=== PATIENT | male | born 1965 | race American Indian/Alaskan Native ===

== ENCOUNTER 2022-02-03 19:45 | Inpatient (IN) | payer OTHER ==
[2022-02-03] MEDS ORDERED: SODIUM CHLORIDE 0.9% 1000 ML 1,000 ML IV ONE (20:32)
[2022-02-03 21:10] LABS: Calcium 8.8 mg/dL (8.4-10.2)
[2022-02-03 21:19] LABS: Basophils # (Auto) 0.1 K/mm3 (0.0-0.1); Basophils % (Auto) 0.4 % (0.0-1.8); Eosinophils % (Auto) 0.1 % (0.0-4.3); Lymphocytes # (Auto) 1.9 K/mm3 (1.2-5.4); Lymphocytes % (Auto) 11.6 % (13.4-35.0); Mean Corpuscular HGB Conc 35 % (32-34); Mean Corpuscular Volume 100 fl (84-94); Monocytes # (Auto) 1.1 K/mm3 (0.0-0.8); Monocytes % (Auto) 6.5 % (0.0-7.3); Platelet Count 351 K/mm3 (140-440); Red Blood Count 1.66 M/mm3 (3.65-5.03); Red Cell Distribution Width 12.4 % (13.2-15.2)
[2022-02-03 21:30] LABS: Hematocrit 16.6 % (35.5-45.6); Hemoglobin 5.8 gm/dl (11.8-15.2)
[2022-02-03] MEDS ORDERED: SODIUM CHLORIDE 0.9% 500 ML 500 ML IV ONE (21:39)
[2022-02-03] MEDS ORDERED: INSULIN REGULAR, HUMAN 100 UNITS/1 ML IV ONE (21:40)
--- NOTE | 2022-02-03 22:00 | Emergency Department Report ---
- General Chief complaint: Hyperglycemia Stated complaint: MALAISE, HYPERGLYCEMIA Time Seen by Provider: 02/03/22 20:15 Source: patient, EMS Mode of arrival: Stretcher Limitations: No Limitations - History of Present Illness Initial comments: Patient is a 56-year-old male brought in by EMS with complaint of malaise. He reportedly was diagnosed with prostate cancer last year and canceled his follow- up appointment in July of this year. He has not followed up since. He is ac companied by his sister who reports intermittent episodes of lightheadedness/syncope over the past week. Patient also reports that his blood sugar has been high. He has history of diabetes type 2 and is on oral medications. - Related Data Allergies Allergy/AdvReac Type Severity Reaction Status Date / Time No Known Allergies Allergy Unverified 02/03/22 20:07 ED Review of Systems ROS: Stated complaint: MALAISE, HYPERGLYCEMIA Other details as noted in HPI Constitutional: malaise, weakness Respiratory: denies: cough, shortness of breath, wheezing Cardiovascular: denies: chest pain, palpitations Gastrointestinal: melena. denies: abdominal pain, nausea, vomiting Genitourinary: denies: urgency, dysuria Musculoskeletal: denies: back pain, joint swelling, arthralgia Skin: denies: rash, lesions Neurological: denies: headache, weakness, paresthesias Psychiatric: denies: anxiety, depression ED Past Medical Hx - Past Medical History Previous Medical History?: Yes Hx Diabetes: Yes Additional medical history: PROSTATE CANCER - Surgical History Past Surgical History?: No - Social History Smoking Status: Never Smoker ED Physical Exam - General Limitations: No Limitations General appearance: in no apparent distress, lethargic - Head Head exam: Present: atraumatic, normocephalic - Respiratory Respiratory exam: Present: normal lung sounds bilaterally. Absent: respiratory distress - Cardiovascular Cardiovascular Exam: Present: regular rate, normal rhythm, normal heart sounds - GI/Abdominal GI/Abdominal exam: Present: soft. Absent: distended, tenderness - Rectal Rectal exam: Present: normal rectal tone, heme (+) stool, black stool. Absent: hemorrhoids, mass, tenderness - Extremities Exam Extremities exam: Present: normal inspection - Neurological Exam Neurological exam: Present: alert, oriented X3 - Psychiatric Psychiatric exam: Present: normal affect, normal mood - Skin Skin exam: Present: warm, dry, intact, pallor ED Course Vital Signs 02/03/22 02/03/22 02/03/22 20:03 20:20 20:30 Temperature 98.8 F Pulse Rate 102 H 87 Respiratory 16 16 10 L Rate Blood Pressure 96/57 Blood Pressure 118/76 [Right] O2 Sat by Pulse 98 99 100 Oximetry 02/03/22 02/03/22 02/03/22 20:33 20:35 20:46 Temperature 98.5 F Pulse Rate 96 H 96 H 96 H Respiratory 20 17 Rate Blood Pressure 98/56 101/57 Blood Pressure [Right] O2 Sat by Pulse 98 100 Oximetry 02/03/22 02/03/22 02/03/22 21:00 21:16 21:30 Temperature Pulse Rate 88 89 Respiratory 22 17 Rate Blood Pressure 104/54 96/55 113/57 Blood Pressure [Right] O2 Sat by Pulse 99 96 100 Oximetry 02/03/22 02/03/22 02/03/22 21:46 22:00 22:30 Temperature Pulse Rate 87 98 H 103 H Respiratory 24 16 Rate Blood Pressure 97/49 112/53 112/53 Blood Pressure [Right] O2 Sat by Pulse 100 100 Oximetry 02/03/22 22:46 Temperature Pulse Rate 100 H Respiratory 19 Rate Blood Pressure 79/37 Blood Pressure [Right] O2 Sat by Pulse 100 Oximetry ED Medical Decision Making - Lab Data Result diagrams: 02/03/22 20:44 02/03/22 20:24 - Medical Decision Making Hemoglobin 5.6. Digital rectal exam reveals melanic stool. Patient started on Protonix drip and 3 units of packed cells ordered. CTA abdomen pelvis shows no obvious source of bleeding. GI consulted and will follow during admission. Serum glucose 551. Serum potassium within normal limits. Patient given IV insulin along with aggressive fluid resuscitation. Will admit to hospitalist. Critical Care Time: Yes Critical care time in (mins) excluding proc time.: 60 Critical care attestation.: If time is entered above; I have spent that time in minutes in the direct care of this critically ill patient, excluding procedure time. ED Disposition Clinical Impression: Occult GI bleeding, Anemia due to gastrointestinal blood loss, Hyperglycemia due to type 2 diabetes mellitus Disposition: 09 ADMITTED INPATIENT Is pt being admited?: Yes Condition: Stable Instructions: Diabetes Mellitus Type 2 in Adults (ED)
--- NOTE | 2022-02-03 22:47 | Cat Scan Report ---
CTA ABDOMEN AND PELVIS WITH IV CONTRAST INDICATION: GI bleed 100ml of [id number] . TECHNIQUE: Axial CT images were obtained through the abdomen and pelvis after injection of IV contrast. 3 plane MIP reconstructions were produced. All CT scans at this location are performed using CT dose reductio n for ALARA by means of automated exposure control. COMPARISON: None available. FINDINGS: VASCULAR FINDINGS: AORTA: There is mild atherosclerosis without other significant abnormalities. CELIAC TRUNK: No significant abnormality. SUPERIOR MESENTERIC ARTERY: No significant abnormality. RENAL ARTERIES: Mild nonobstructive atherosclerosis is seen at the origin of the left renal artery. N o other significant abnormality. INFERIOR MESENTERIC ARTERY: No significant abnormality. RIGHT ILIAC ARTERIES: There is mild nonobstructive atherosclerosis without other significant abnormal ities. LEFT ILIAC ARTERIES: There is mild nonobstructive atherosclerosis without other significant abnormali ties. FEMORAL ARTERIES: There is mild nonobstructive atherosclerosis without other significant abnormalitie s. NONTARGET STRUCTURES: ABDOMEN: No active contrast extravasation is identified along the GI tract to suggest an acute active GI bleed. No other acute findings. PELVIS: The prostate gland is mildly enlarged. No other significant abnormality. SKELETAL: No significant abnormality. ADDITIONAL FINDINGS: None. IMPRESSION: No CT angiographic evidence of an active GI bleed. No other acute vascular findings. Signer Name: Renato Cordero MD Signed: 02/03/2022 10:43 PM Workstation Name: [id number]
[2022-02-03] MEDS ORDERED: DEXTROSE 50% IN WATER (25GM) 50 ML SYRINGE IV PRN (23:45)
[2022-02-03] MEDS ORDERED: MORPHINE 2 MG/1 ML INJ IV PRN (23:45)
[2022-02-03] MEDS ORDERED: MORPHINE 4 MG/1 ML INJ IV PRN (23:45)
[2022-02-03] MEDS ORDERED: ONDANSETRON 4 MG/2 ML INJ IV PRN (23:45)
[2022-02-03] MEDS ORDERED: ACETAMINOPHEN 325 MG TAB PO PRN (23:45)
--- NOTE | 2022-02-03 23:57 | History and Physical Report ---
History of Present Illness Date of examination: 02/03/22 Date of admission: 02/03/2022 Chief complaint: Generalized malaise History of present illness: 56-year-old male with known history of diabetes mellitus and prostate cancer diagnosed about a year ago presenting to the emergency room today complaining of generalized weakness and dizziness. Patient has refused to follow-up with us for prostate cancer since last year. He also indicates that his blood sugar has been high. He denies any fever or chills, no chest pain or shortness of breath, no headache or diaphoresis. Denies any abdominal pain, no hematuria or dysuria. He also indicates that he has been having some bloody stool. He denies any use of nonsteroidal anti-inflammatory medication. Work-up in the emergency room today reveals an elevated blood glucose in the 500s. Hemoglobin of 5.6. CT angiogram of the abdomen and pelvis was unremarkable. Patient is being prepared for blood transfusion. Chemical Laboratory Assistant on-call has also been notified and consulted by the ER physician. Past History Past Medical History: diabetes, other (Prostate ca.) Past Surgical History: No surgical history Social history: no significant social history Family history: no significant family history Medications and Allergies Allergies Allergy/AdvReac Type Severity Reaction Status Date / Time No Known Allergies Allergy Verified 02/03/22 23:26 Active Meds: Active Medications Pantoprazole Sodium 80 mg/ (Sodium Chloride) 100 mls @ 10 mls/hr IV DIRECT SHARI Review of Systems Constitutional: malaise, no fever, no chills Ears, nose, mouth and throat: no nasal congestion, no sore throat Cardiovascular: no chest pain, no palpitations Respiratory: no cough, no shortness of breath Gastrointestinal: abdominal pain, BRBPR, no nausea, no vomiting, no diarrhea Genitourinary Male: no dysuria, no hematuria, no nocturia Rectal: bleeding Musculoskeletal: no neck pain, no low back pain Integumentary: no rash, no pruritis Neurological: no headaches, no confusion Psychiatric: no anxiety, no depression Endocrine: no polyphagia, no polydipsia, no polyuria, no nocturia Exam - Constitutional Vitals: Temp Pulse Resp BP Pulse Ox 98.5 F 100 H 19 79/37 100 02/03/22 20:35 02/03/22 22:46 02/03/22 22:46 02/03/22 22:46 02/03/22 22:46 General appearance: Present: no acute distress, well-nourished, other (Moderate pallor, appears lethargic) - EENT Eyes: Present: PERRL, EOM intact. Absent: scleral icterus ENT: hearing intact, clear oral mucosa, dentition normal - Neck Neck: Present: supple, normal ROM - Respiratory Respiratory effort: normal Respiratory: bilateral: CTA - Cardiovascular Rhythm: regular Heart Sounds: Present: S1 & S2. Absent: gallop, systolic murmur, diastolic murmur, rub, click - Extremities Extremities: no ischemia, pulses intact, pulses symmetrical, No edema, normal temperature, normal color, Full ROM Peripheral Pulses: within normal limits - Abdominal General gastrointestinal: Present: soft, non-tender, non-distended, normal bowel sounds. Absent: mass - Integumentary Integumentary: Present: clear, warm, dry, normal turgor. Absent: rash - Musculoskeletal Musculoskeletal: strength equal bilaterally - Psychiatric Psychiatric: appropriate mood/affect, intact judgment & insight, memory intact, cooperative - Neurologic Neurologic: CNII-XII intact, no focal deficits, moves all extremities Results - Labs CBC & Chem 7: 02/04/22 05:24 02/04/22 04:00 Labs: Abnormal lab results 02/03/22 02/03/22 02/03/22 Range/Units 20:19 20:24 20:44 WBC 16.2 H (4.5-11.0) K/mm3 RBC 1.66 L (3.65-5.03) M/mm3 Hgb 5.8 L* (11.8-15.2) gm/dl Hct 16.6 L* (35.5-45.6) % MCV 100 H (84-94) fl MCH 35 H (28-32) pg MCHC 35 H (32-34) % RDW 12.4 L (13.2-15.2) % Lymph % (Auto) 11.6 L (13.4-35.0) % [place] # (Auto) 1.1 H (0.0-0.8) K/mm3 Seg Neutrophils % 81.4 H (40.0-70.0) % Seg Neutrophils # 13.2 H (1.8-7.7) K/mm3 Sodium 132 L (137-145) mmol/L Chloride 93.9 L (98-107) mmol/L BUN 56 H (9-20) mg/dL Creatinine 1.6 H (0.8-1.3) mg/dL Glucose 551 H* (75-100) mg/dL POC Glucose 505 H (70-105) mg/dL Crossmatch 02/03/22 02/03/22 Range/Units 21:53 22:45 WBC (4.5-11.0) K/mm3 RBC (3.65-5.03) M/mm3 Hgb (11.8-15.2) gm/dl Hct (35.5-45.6) % MCV (84-94) fl MCH (28-32) pg MCHC (32-34) % RDW (13.2-15.2) % Lymph % (Auto) (13.4-35.0) % [place] # (Auto) (0.0-0.8) K/mm3 Seg Neutrophils % (40.0-70.0) % Seg Neutrophils # (1.8-7.7) K/mm3 Sodium (137-145) mmol/L Chloride (98-107) mmol/L BUN (9-20) mg/dL Creatinine (0.8-1.3) mg/dL Glucose (75-100) mg/dL POC Glucose 368 H (70-105) mg/dL Crossmatch See Detail Assessment and Plan Assessment: 1. GI bleed 2. Hyperglycemia 3. Anemia-possibly secondary to GI bleed 4. History of prostate cancer Plan: 1. Patient admitted into the intensive care unit 2. We will monitor for hemoglobin and hematocrit. 3. Consult placed to special crimes investigator for evaluation 4. Patient will be made n.p.o. at this time. 5. Patient placed on sliding scale insulin. Monitor Accu-Cheks closely. DVT prophylaxis: Sequential compression device CODE STATUS: Full code
[2022-02-04] MEDS: SODIUM CHLORIDE 0.9% 1000 ML 1,000 ML IV SCH ×2 (00:16→12:07)
[2022-02-04] MEDS: PANTOPRAZOLE 80 MG in SODIUM CHLORIDE 0.9% 100 ML IV SCH ×2 (00:17→17:13)
[2022-02-04 05:37] LABS: Hematocrit 23.5 % (35.5-45.6); Hemoglobin 8.3 gm/dl (11.8-15.2); Mean Corpuscular HGB Conc 35 % (32-34); Mean Corpuscular Volume 93 fl (84-94); Platelet Count 264 K/mm3 (140-440); Red Blood Count 2.52 M/mm3 (3.65-5.03); Red Cell Distribution Width 14.9 % (13.2-15.2)
[2022-02-04 05:57] LABS: BUN/Creatinine Ratio 36; Blood Urea Nitrogen 47 mg/dL (9-20); Hemolysis Index 7
[2022-02-04] MEDS: INSULIN LISPRO 100 UNIT/ML SUB-Q SCH ×4 (06:42→23:54)
--- NOTE | 2022-02-04 09:00 | XRay Report ---
CHEST 1 VIEW 02/04/2022 8:38 AM INDICATION / CLINICAL INFORMATION: Dyspnea. COMPARISON: None available. FINDINGS: SUPPORT DEVICES: None. HEART / MEDIASTINUM: No significant abnormality. LUNGS / PLEURA: No significant pulmonary or pleural abnormality. No pneumothorax. ADDITIONAL FINDINGS: No significant additional findings. IMPRESSION: 1. No acute findings. Signer Name: Madhav Mayo Jr, MD Signed: 02/04/2022 8:56 AM Workstation Name: [id number]
--- NOTE | 2022-02-04 10:19 | Progress Note ---
<RAMOS VILLAGOMEZ - Last Filed: 02/04/22 18:01> Assessment and Plan Assessment and plan: This is a 56-year-old male with known past medical history of type 2 diabetes mellitus and prostate CA admitted for acute blood loss anemia secondary to GI bleed Hospital Course to Date: 02/04: s/p 3units of PRBCs, H&H stable, no s/s of any active bleeding since admit. GI consulted, plan for possible EGD/colonoscopy tomorrow. Clear liquid diet today, NPO after midnight tonight. Continue protonix gtt and trend H&H Q8hrs. Remains hyperglycemic SSI adjusted and Lantus added Qhs. Assessment and Plan #Acute Blood Loss Anemia 2/ #GI Bleed - Presented with generalized weakness and dizziness and Hgb of 5.6 - Stool occult blood positive - Per patient black stools noted at home but none reported since admit - S/p 3 units of PRBCs - H&H stable, no s/s of any active bleeding - GI Consulted, appreciate recommendations - Plan for possible EGD/colonoscopy tomorrow. - Clear liquid diet today, NPO after midnight tonight - Continue Protonix gtt - Continue to trend H&H #Hypotension-resolved #H/o Hypertension - Most likely secondary to above - BP above post blood products - Hold antihypertensive therapy for now, until after scoping - Continue blood pressure monitor per protocol - Maintain MAP above 65 and SBP less than 160 #Type 2 Diabetes Mellitus with Hyperglycemia - Hgb A1c- 5.8, patient was on Metformin at home - SSI adjusted and Lantus added Qhs - Continue BG check ACHS - While critically ill target blood glucose of 140-180 #H/o Prostate Cancer - Per patient was diagnosed with prostate CA over a year ago, however he had not been following up with his doctor - Per patient, he has an appointment with his Urologist, Dr. Garcia for this upcoming Wednesday 02/07 to further discuss plan of care - Follow up with Urology and PCP outpatient #GI/DVT Prophylaxis - PPI- Protonix gtt - SCDs to bilateral lower extremities while in bed #Advance Care Planning - Disease education data, care plan, diagnoses, and prognosis were discussed w ith patient at the bedside. Patient is a FULL code. Patient acknowledged understanding and agreed with current care plan. The high probability of a clinically significant, sudden or life threatening deterioration of the [multiple] system(s) required my full and direct attention, intervention and personal management. The aggregate critical care time was [60] minutes. This time is in addition to time spent performing reported procedures but includes the following: [x] Data Review and interpretation [x] Patient assessment and monitoring of vital signs [x] Documentation [x] Medication orders and management Disposition Plan: ICU Total Time Spent with Patient (Minutes): 60 History Interval history: Patient seen and examined at the bedside. Fully AAO, on RA, denied any pain nor any discomfort at this time. On protonix gtt. Per patient, black stools noted at home but no BM since admit. S/p 3units of PRBCs, H&H stable, VSS. Hospitalist Physical - Constitutional Vitals: Temp Pulse Resp BP Pulse Ox 98 F 83 25 H 109/60 97 02/04/22 08:00 02/04/22 08:10 02/04/22 08:20 02/04/22 08:10 02/04/22 08:20 General appearance: Present: no acute distress, well-nourished, obese - EENT Eyes: Present: PERRL, EOM intact ENT: hearing intact - Neck Neck: Present: normal ROM - Respiratory Respiratory effort: normal Respiratory: bilateral: diminished - Cardiovascular Rhythm: regular Heart Sounds: Present: S1 & S2 - Extremities Extremities: no ischemia, pulses intact, pulses symmetrical Peripheral Pulses: within normal limits - Abdominal General gastrointestinal: soft, non-distended, normal bowel sounds - Integumentary Integumentary: Present: clear, warm, dry - Psychiatric Psychiatric: appropriate mood/affect, cooperative - Neurologic Neurologic: CNII-XII intact, moves all extremities - Allied Health Allied health notes reviewed: nursing, case management Results - Labs CBC & Chem 7: 02/04/22 05:24 02/04/22 04:00 Labs: Laboratory Last Values WBC 16.6 K/mm3 (4.5-11.0) H 02/04/22 05:24 RBC 2.52 M/mm3 (3.65-5.03) L 02/04/22 05:24 Hgb 8.3 gm/dl (11.8-15.2) L 02/04/22 05:24 Hct 23.5 % (35.5-45.6) L D 02/04/22 05:24 MCV 93 fl (84-94) 02/04/22 05:24 MCH 33 pg (28-32) H 02/04/22 05:24 MCHC 35 % (32-34) H 02/04/22 05:24 RDW 14.9 % (13.2-15.2) 02/04/22 05:24 Plt Count 264 K/mm3 (140-440) 02/04/22 05:24 Lymph % (Auto) 11.6 % (13.4-35.0) L 02/03/22 20:44 [place] % (Auto) 6.5 % (0.0-7.3) 02/03/22 20:44 Eos % (Auto) 0.1 % (0.0-4.3) 02/03/22 20:44 Baso % (Auto) 0.4 % (0.0-1.8) 02/03/22 20:44 Lymph # (Auto) 1.9 K/mm3 (1.2-5.4) 02/03/22 20:44 [place] # (Auto) 1.1 K/mm3 (0.0-0.8) H 02/03/22 20:44 Eos # (Auto) 0.0 K/mm3 (0.0-0.4) 02/03/22 20:44 Baso # (Auto) 0.1 K/mm3 (0.0-0.1) 02/03/22 20:44 Seg Neutrophils % 81.4 % (40.0-70.0) H 02/03/22 20:44 Seg Neutrophils # 13.2 K/mm3 (1.8-7.7) H 02/03/22 20:44 Sodium 133 mmol/L (137-145) L 02/04/22 04:00 Potassium 3.9 mmol/L (3.6-5.0) 02/04/22 04:00 Chloride 99.5 mmol/L (98-107) 02/04/22 04:00 Carbon Dioxide 24 mmol/L (22-30) 02/04/22 04:00 Anion Gap 13 mmol/L 02/04/22 04:00 BUN 47 mg/dL (9-20) H 02/04/22 04:00 Creatinine 1.3 mg/dL (0.8-1.3) 02/04/22 04:00 Estimated GFR > 60 ml/min 02/04/22 04:00 BUN/Creatinine Ratio 36 % 02/04/22 04:00 Glucose 415 mg/dL (75-100) H 02/04/22 04:00 POC Glucose 373 mg/dL (70-105) H 02/04/22 06:37 Hemoglobin A1c 5.8 % (4-6) 02/04/22 05:24 Calcium 8.0 mg/dL (8.4-10.2) L 02/04/22 04:00 Blood Type O POSITIVE 02/03/22 21:53 Antibody Screen Negative 02/03/22 21:53 Crossmatch See Detail 02/03/22 21:53 Microbiology: Microbiology 02/03/22 Unknown Stool Stool Occult Blood (KARRI) - Final [place]/IV: Voiding Method Urinal Active Medications - Current Medications Current Medications: Generic Name Dose Route Start Last Admin Trade Name Freq PRN Reason Stop Dose Admin Acetaminophen 650 mg 02/03/22 23:45 Acetaminophen 325 Mg Tab PO Q6H PRN Pain MILD(1-3)/Fever >100.5/LUIS Dextrose 50 ml 02/03/22 23:45 Dextrose 50% In Water (25gm) 50 Ml Syringe IV Q30MIN PRN Hypoglycemia Protocol Pantoprazole Sodium 80 mg/ 100 mls @ 10 mls/hr 02/03/22 23:45 02/04/22 00:17 Sodium Chloride IV 8 mg/hr DIRECT SHARI 10 mls/hr Administration 8 MG/HR Sodium Chloride 1,000 mls @ 75 mls/hr 02/03/22 23:45 02/04/22 00:16 Nacl 0.9% 1000 Ml IV 75 mls/hr DIRECT SHARI Administration Insulin Glargine 20 units 02/04/22 22:00 Insulin Glargine 100 Units/Ml SUB-Q QHS SHARI Insulin Human Lispro 0 unit 02/04/22 07:30 02/04/22 06:42 Insulin Lispro 100 Unit/Ml SUB-Q 8 unit ACHS SHARI Administration Protocol Morphine Sulfate 2 mg 02/03/22 23:45 Morphine 2 Mg/1 Ml Inj IV Q4H PRN Pain, Moderate (4-6) Ondansetron HCl 4 mg 02/03/22 23:45 Ondansetron 4 Mg/2 Ml Inj IV Q8H PRN Nausea And Vomiting Sodium Chloride 10 ml 02/04/22 10:00 Sodium Chloride 0.9% 10 Ml Flush Syringe IV BID SHARI Sodium Chloride 10 ml 02/03/22 23:45 Sodium Chloride 0.9% 10 Ml Flush Syringe IV PRN PRN LINE FLUSH <NICOLE MIRANDA Chantelle - Last Filed: 02/05/22 07:14> Assessment and Plan Assessment and plan: I saw and evaluated the patient. I agree with the findings and the plan of care as documented in the Nurse Practitioner's~note, with the following corrections and additions. Hospitalist Physical - Constitutional Vitals: Temp Pulse Resp BP Pulse Ox 98.7 F 69 20 101/59 97 02/04/22 20:00 02/05/22 07:10 02/05/22 07:10 02/05/22 07:10 02/05/22 07:10 Results - Labs CBC & Chem 7: 02/05/22 04:28 02/05/22 04:28 Labs: Laboratory Last Values WBC 11.3 K/mm3 (4.5-11.0) H 02/05/22 04:28 RBC 2.27 M/mm3 (3.65-5.03) L 02/05/22 04:28 Hgb 7.4 gm/dl (11.8-15.2) L 02/05/22 04:28 Hct 21.3 % (35.5-45.6) L 02/05/22 04:28 MCV 94 fl (84-94) 02/05/22 04:28 MCH 33 pg (28-32) H 02/05/22 04:28 MCHC 35 % (32-34) H 02/05/22 04:28 RDW 15.5 % (13.2-15.2) H 02/05/22 04:28 Plt Count 256 K/mm3 (140-440) 02/05/22 04:28 Lymph % (Auto) 15.5 % (13.4-35.0) 02/05/22 04:28 [place] % (Auto) 6.9 % (0.0-7.3) 02/05/22 04:28 Eos % (Auto) 1.2 % (0.0-4.3) 02/05/22 04:28 Baso % (Auto) 0.5 % (0.0-1.8) 02/05/22 04:28 Lymph # (Auto) 1.8 K/mm3 (1.2-5.4) 02/05/22 04:28 [place] # (Auto) 0.8 K/mm3 (0.0-0.8) 02/05/22 04:28 Eos # (Auto) 0.1 K/mm3 (0.0-0.4) 02/05/22 04:28 Baso # (Auto) 0.1 K/mm3 (0.0-0.1) 02/05/22 04:28 Seg Neutrophils % 75.9 % (40.0-70.0) H 02/05/22 04:28 Seg Neutrophils # 8.6 K/mm3 (1.8-7.7) H 02/05/22 04:28 Sodium 139 mmol/L (137-145) 02/05/22 04:28 Potassium 3.2 mmol/L (3.6-5.0) L 02/05/22 04:28 Chloride 105.8 mmol/L (98-107) 02/05/22 04:28 Carbon Dioxide 24 mmol/L (22-30) 02/05/22 04:28 Anion Gap 12 mmol/L 02/05/22 04:28 BUN 23 mg/dL (9-20) H 02/05/22 04:28 Creatinine 1.0 mg/dL (0.8-1.3) 02/05/22 04:28 Estimated GFR > 60 ml/min 02/05/22 04:28 BUN/Creatinine Ratio 23 % 02/05/22 04:28 Glucose 171 mg/dL (75-100) H 02/05/22 04:28 POC Glucose 274 mg/dL (70-105) H 02/04/22 23:50 Hemoglobin A1c 5.8 % (4-6) 02/04/22 05:24 Calcium 7.4 mg/dL (8.4-10.2) L 02/05/22 04:28 Total Bilirubin 0.40 mg/dL (0.1-1.2) 02/05/22 04:28 AST 11 units/L (5-40) 02/05/22 04:28 ALT 8 units/L (7-56) 02/05/22 04:28 Alkaline Phosphatase 31 units/L (35-129) L 02/05/22 04:28 Total Protein 4.6 g/dL (6.3-8.2) L 02/05/22 04:28 Albumin 2.8 g/dL (3.9-5) L 02/05/22 04:28 Albumin/Globulin Ratio 1.6 % 02/05/22 04:28 Urine Color Yellow (Yellow) 02/04/22 17:47 Urine Turbidity Clear (Clear) 02/04/22 17:47 Urine pH 6.5 (5.0-7.0) 02/04/22 17:47 Ur Specific [place] 1.005 (1.003-1.030) 02/04/22 17:47 Urine Protein <15 mg/dl mg/dL (Negative) 02/04/22 17:47 Urine Glucose (UA) 2000 mg/dL (Negative) 02/04/22 17:47 Urine Ketones Negative mg/dL (Negative) 02/04/22 17:47 Urine Blood Negative (Negative) 02/04/22 17:47 Urine Nitrite Negative (Negative) 02/04/22 17:47 Urine Bilirubin Negative (Negative) 02/04/22 17:47 Urine Urobilinogen < 2.0 mg/dL (<2.0) 02/04/22 17:47 Ur Leukocyte Esterase Negative (Negative) 02/04/22 17:47 Urine WBC (Auto) 1.0 /HPF (0.0-6.0) 02/04/22 17:47 Urine RBC (Auto) < 1.0 /HPF (0.0-6.0) 02/04/22 17:47 Urine Mucus Few /HPF 02/04/22 17:47 Blood Type O POSITIVE 02/03/22 21:53 Antibody Screen Negative 02/03/22 21:53 Crossmatch See Detail 02/03/22 21:53 [place]/IV: Voiding Method Urinal Active Medications - Current Medications Current Medications: Generic Name Dose Route Start Last Admin Trade Name Freq PRN Reason Stop Dose Admin Acetaminophen 650 mg 02/03/22 23:45 Acetaminophen 325 Mg Tab PO Q6H PRN Pain MILD(1-3)/Fever >100.5/LUIS Dextrose 50 ml 02/03/22 23:45 Dextrose 50% In Water (25gm) 50 Ml Syringe IV Q30MIN PRN Hypoglycemia Protocol Pantoprazole Sodium 80 mg/ 100 mls @ 10 mls/hr 02/03/22 23:45 02/05/22 03:15 Sodium Chloride IV 8 mg/hr DIRECT SHARI 10 mls/hr Administration 8 MG/HR Sodium Chloride 1,000 mls @ 75 mls/hr 02/03/22 23:45 02/05/22 01:30 Nacl 0.9% 1000 Ml IV 75 mls/hr DIRECT SHAIR Administration Insulin Glargine 20 units 02/04/22 22:00 02/04/22 23:54 Insulin Glargine 100 Units/Ml SUB-Q 20 units QHS SHARI Administration Insulin Human Lispro 0 unit 02/04/22 07:30 02/04/22 23:54 Insulin Lispro 100 Unit/Ml SUB-Q 6 unit ACHS SHARI Administration Protocol Morphine Sulfate 2 mg 02/03/22 23:45 Morphine 2 Mg/1 Ml Inj IV Q4H PRN Pain, Moderate (4-6) Ondansetron HCl 4 mg 02/03/22 23:45 Ondansetron 4 Mg/2 Ml Inj IV Q8H PRN Nausea And Vomiting Polyethylene Glycol/Electrolytes 4,000 ml 02/04/22 17:00 Polyethylene Glycol/Elect Soln 4000 Ml PO 02/05/22 14:59 ONCE SHARI Sodium Chloride 10 ml 02/04/22 10:00 02/04/22 23:55 Sodium Chloride 0.9% 10 Ml Flush Syringe IV 10 ml BID SHARI Administration Sodium Chloride 10 ml 02/03/22 23:45 Sodium Chloride 0.9% 10 Ml Flush Syringe IV PRN PRN LINE FLUSH
--- NOTE | 2022-02-04 11:47 | Consultation ---
History of Present Illness Consult date: 02/04/22 Requesting physician: GABRIELLA BHARDWAJ Reason for consult: other (Anemia, hyperglycemia) History of present illness: 56-year-old male with known history of diabetes mellitus and prostate cancer diagnosed about a year ago presenting to the emergency room today complaining of generalized weakness and dizziness. Patient has refused to follow-up with us for prostate cancer since last year. He also indicates that his blood sugar has been high. He denies any fever or chills, no chest pain or shortness of breath, no headache or diaphoresis. Denies any abdominal pain, no hematuria or dysuria. He also indicates that he has been having some bloody stool and tarry black stools. He denies any use of nonsteroidal anti-inflammatory medication. Work-up in the emergency room today reveals an elevated blood glucose in the 500s. Hemoglobin of 5.6. CT angiogram of the abdomen and pelvis was unremarkable. Patient is awaiting supportive blood transfusion. Admitted to the ICU for closer monitoring, glycemic control and Upper GI endoscopy. A critical care consult has been placed. Patient seen and examined. Review of Systems Constitutional: malaise, no fever, no chills Ears, nose, mouth and throat: no nasal congestion, no sore throat Cardiovascular: no chest pain, no palpitations Respiratory: no cough, no shortness of breath Gastrointestinal: abdominal pain, BRBPR, no nausea, no vomiting, no diarrhea Genitourinary Male: no dysuria, no hematuria, no nocturia Rectal: bleeding Musculoskeletal: no neck pain, no low back pain Integumentary: no rash, no pruritis Neurological: no headaches, no confusion Psychiatric: no anxiety, no depression Endocrine: no polyphagia, no polydipsia, no polyuria, no nocturia Past History Past Medical History: diabetes, other (Prostate ca.) Past Surgical History: No surgical history Social history: no significant social history Family history: no significant family history Medications and Allergies Allergies Allergy/AdvReac Type Severity Reaction Status Date / Time No Known Allergies Allergy Verified 02/03/22 23:26 Home Medications Medication Instructions Recorded Confirmed Last Taken Type Amlodipine Besylate/Valsartan 1 tab PO DAILY 02/05/22 02/05/22 2 Days Ago History [Amlodipine-Valsartan 10-160 mg] ~02/03/22 Metformin HCl [metFORMIN] 1,000 mg PO BID 02/05/22 02/05/22 2 Days Ago History ~02/03/22 hydroCHLOROthiazide [HCTZ] 25 mg PO QDAY 02/05/22 02/05/22 2 Days Ago History ~02/03/22 Active Meds: Active Medications Acetaminophen (Acetaminophen 325 Mg Tab) 650 mg PO Q6H PRN PRN Reason: Pain MILD(1-3)/Fever >100.5/LUIS Dextrose (Dextrose 50% In Water (25gm) 50 Ml Syringe) 50 ml IV Q30MIN PRN; Protocol PRN Reason: Hypoglycemia Pantoprazole Sodium 80 mg/ (Sodium Chloride) 100 mls @ 10 mls/hr IV DIRECT SHARI Last Admin: 02/04/22 00:17 Dose: 8 mg/hr, 10 mls/hr Sodium Chloride (Nacl 0.9% 1000 Ml) 1,000 mls @ 75 mls/hr IV DIRECT SHARI Last Admin: 02/04/22 00:16 Dose: 75 mls/hr Insulin Glargine (Insulin Glargine 100 Units/Ml) 20 units SUB-Q QHS SHARI Insulin Human Lispro (Insulin Lispro 100 Unit/Ml) 0 unit SUB-Q ACHS SHARI; Protocol Last Admin: 02/04/22 06:42 Dose: 8 unit Morphine Sulfate (Morphine 2 Mg/1 Ml Inj) 2 mg IV Q4H PRN PRN Reason: Pain, Moderate (4-6) Ondansetron HCl (Ondansetron 4 Mg/2 Ml Inj) 4 mg IV Q8H PRN PRN Reason: Nausea And Vomiting Sodium Chloride (Sodium Chloride 0.9% 10 Ml Flush Syringe) 10 ml IV BID SHARI Sodium Chloride (Sodium Chloride 0.9% 10 Ml Flush Syringe) 10 ml IV PRN PRN PRN Reason: LINE FLUSH Physical Examination Vital signs: Vital Signs Temp Pulse Resp BP Pulse Ox 98.8 F 102 H 16 118/76 98 02/03/22 20:03 02/03/22 20:03 02/03/22 20:03 02/03/22 20:03 02/03/22 20:03 General appearance: no acute distress, alert Eyes: non-icteric ENT: oropharynx moist Neck: supple, no lymphadenopathy, no JVD Effort: normal Ascultation: Bilateral: clear, diminished breath sounds Cardiovascular: regular rate and rhythm, other (S1,S2) Gastrointestinal: normoactive bowel sounds, soft, non-tender Integumentary: normal Extremities: no cyanosis, no edema, pulses normal normal mental status, non-focal exam, pupils equal and round, CN II-XII normal, motor strength normal and other (Flat affect) Results - Laboratory Findings CBC and BMP: 02/06/22 04:00 02/06/22 04:00 Abnormal lab findings: Abnormal Labs 02/03/22 02/03/22 02/03/22 20:19 20:24 20:44 WBC 16.2 H RBC 1.66 L Hgb 5.8 L* Hct 16.6 L* MCV 100 H MCH 35 H MCHC 35 H RDW 12.4 L Lymph % (Auto) 11.6 L [place] # (Auto) 1.1 H Seg Neutrophils % 81.4 H Seg Neutrophils # 13.2 H Sodium 132 L Chloride 93.9 L BUN 56 H Creatinine 1.6 H Glucose 551 H* POC Glucose 505 H Calcium Crossmatch 02/03/22 02/03/22 02/04/22 21:53 22:45 04:00 WBC RBC Hgb Hct MCV MCH MCHC RDW Lymph % (Auto) [place] # (Auto) Seg Neutrophils % Seg Neutrophils # Sodium 133 L Chloride BUN 47 H Creatinine Glucose 415 H POC Glucose 368 H Calcium 8.0 L Crossmatch See Detail 02/04/22 02/04/22 02/04/22 05:24 06:37 11:39 WBC 16.6 H RBC 2.52 L Hgb 8.3 L Hct 23.5 L D MCV MCH 33 H MCHC 35 H RDW Lymph % (Auto) [place] # (Auto) Seg Neutrophils % Seg Neutrophils # Sodium Chloride BUN Creatinine Glucose POC Glucose 373 H 338 H Calcium Crossmatch - Diagnostic Findings Chest x-ray: image reviewed (No acute infiltrates) Assessment and Plan Acute Blood Loss Anemia 2/2 GI Bleed Hypotension H/o Hypertension Type 2 Diabetes Mellitus with Hyperglycemia H/o Prostate Cancer DVT Prophylaxis -Transfuse PRBCS, keep HgB>7g/dL -Plan for EGD and colonoscopy per GI tomorrow -Continue with therapeutic pantoprazole -Accuchecks with glycemic control. Stop Metformin and use sliding scale insulin for now -Avoid hypoglycemia -SCDs while in bed -Monitor hemodynamics closely -Hold home anti-hypertensives until his blood pressure recovers -Per patient, he has an appointment with his Urologist, Dr. Garcia for this upcoming Wednesday 02/07 to further discuss plan of care for the prostate cancer - Disease education data, care plan, diagnoses, and prognosis were discussed with patient at the bedside. Patient is a FULL code. Patient acknowledged understanding and agreed with current care plan. The high probability of a clinically significant, sudden or life threatening deterioration of the GI system(s) required my full and direct attention, intervention and personal management. The aggregate critical care time was [32] minutes. This time is in addition to time spent performing reported procedures but includes the following: [x] Data Review and interpretation [x] Patient assessment and monitoring of vital signs [x] Documentation [x] Medication orders and management
[2022-02-04] MEDS ORDERED: INSULIN REGULAR, HUMAN 100 UNITS/1 ML SUB-Q SCH (12:00)
--- NOTE | 2022-02-04 14:48 | Gastroenterology Consultation ---
History of Present Illness - Reason for Consult Consult date: 02/04/22 GI bleed Requesting physician: GABRIELLA BHARDWAJ - History of Present Illness Patient seen this AM around 8AM Pleasant 56 yo hx prostate CA, presenting with weakness/fatigue found to have severe anemia. Reports dark stool, but denies many loose melanotic stools routinely, denies prior endoscopic eval Patient has refused to follow-up with us for prostate cancer since last year. He also indicates that his blood sugar has been high. He denies any fever or chills, no chest pain or shortness of breath, no headache or diaphoresis. Denies any abdominal pain, no hematuria or dysuria. home meds reviewed/reconciled/updated Past History Past Medical History: diabetes, other (Prostate ca.) Past Surgical History: No surgical history Social history: no significant social history Family history: no significant family history Medications and Allergies Allergies Allergy/AdvReac Type Severity Reaction Status Date / Time No Known Allergies Allergy Verified 02/03/22 23:26 Active Meds: Active Medications Acetaminophen (Acetaminophen 325 Mg Tab) 650 mg PO Q6H PRN PRN Reason: Pain MILD(1-3)/Fever >100.5/LUIS Dextrose (Dextrose 50% In Water (25gm) 50 Ml Syringe) 50 ml IV Q30MIN PRN; Protocol PRN Reason: Hypoglycemia Pantoprazole Sodium 80 mg/ (Sodium Chloride) 100 mls @ 10 mls/hr IV DIRECT SHARI Last Admin: 02/04/22 00:17 Dose: 8 mg/hr, 10 mls/hr Sodium Chloride (Nacl 0.9% 1000 Ml) 1,000 mls @ 75 mls/hr IV DIRECT SHARI Last Admin: 02/04/22 12:07 Dose: 75 mls/hr Insulin Glargine (Insulin Glargine 100 Units/Ml) 20 units SUB-Q QHS SHARI Insulin Human Lispro (Insulin Lispro 100 Unit/Ml) 0 unit SUB-Q ACHS SHARI; Protocol Last Admin: 02/04/22 12:08 Dose: 8 unit Insulin Human Regular (Insulin Regular, Human 100 Units/1 Ml) 5 units SUB-Q ONCE@1200 SHARI Stop: 02/04/22 16:00 Last Admin: 02/04/22 12:07 Dose: 5 units Morphine Sulfate (Morphine 2 Mg/1 Ml Inj) 2 mg IV Q4H PRN PRN Reason: Pain, Moderate (4-6) Ondansetron HCl (Ondansetron 4 Mg/2 Ml Inj) 4 mg IV Q8H PRN PRN Reason: Nausea And Vomiting Sodium Chloride (Sodium Chloride 0.9% 10 Ml Flush Syringe) 10 ml IV BID SHARI Last Admin: 02/04/22 12:05 Dose: Not Given Sodium Chloride (Sodium Chloride 0.9% 10 Ml Flush Syringe) 10 ml IV PRN PRN PRN Reason: LINE FLUSH Review of Systems - Review of Systems All systems: negative (10 systems reviewed and neg except as mentioned in the HPI) Exam - Constitutional Vital Signs: Temp Pulse Resp BP Pulse Ox 98 F 84 22 125/79 100 02/04/22 08:00 02/04/22 13:40 02/04/22 13:40 02/04/22 13:40 02/04/22 13:40 General appearance: no acute distress - EENT Eyes: EOM intact ENT: hearing intact - Neck Neck: supple - Respiratory Respiratory effort: normal - Cardiovascular Rhythm: regular - Gastrointestinal General gastrointestinal: Present: soft, non-tender - Integumentary Integumentary: Present: warm - Musculoskeletal Musculoskeletal: normal - Neurologic Neurological: alert and oriented x3 - Psychiatric Psychiatric: appropriate mood/affect - Labs CBC & Chem 7: 02/04/22 23:18 02/04/22 04:00 Lab Results: Laboratory Results - last 24 hr 02/03/22 02/03/22 02/03/22 20:19 20:24 20:44 WBC 16.2 H RBC 1.66 L Hgb 5.8 L* Hct 16.6 L* MCV 100 H MCH 35 H MCHC 35 H RDW 12.4 L Plt Count 351 Lymph % (Auto) 11.6 L [place] % (Auto) 6.5 Eos % (Auto) 0.1 Baso % (Auto) 0.4 Lymph # (Auto) 1.9 [place] # (Auto) 1.1 H Eos # (Auto) 0.0 Baso # (Auto) 0.1 Seg Neutrophils % 81.4 H Seg Neutrophils # 13.2 H Sodium 132 L Potassium 4.0 Chloride 93.9 L Carbon Dioxide 25 Anion Gap 17 BUN 56 H Creatinine 1.6 H Estimated GFR 45 BUN/Creatinine Ratio 35 Glucose 551 H* POC Glucose 505 H Hemoglobin A1c Calcium 8.8 Blood Type Antibody Screen Crossmatch 02/03/22 02/03/22 02/04/22 21:53 22:45 04:00 WBC RBC Hgb Hct MCV MCH MCHC RDW Plt Count Lymph % (Auto) [place] % (Auto) Eos % (Auto) Baso % (Auto) Lymph # (Auto) [place] # (Auto) Eos # (Auto) Baso # (Auto) Seg Neutrophils % Seg Neutrophils # Sodium 133 L Potassium 3.9 Chloride 99.5 Carbon Dioxide 24 Anion Gap 13 BUN 47 H Creatinine 1.3 Estimated GFR > 60 BUN/Creatinine Ratio 36 Glucose 415 H POC Glucose 368 H Hemoglobin A1c Calcium 8.0 L Blood Type O POSITIVE Antibody Screen Negative Crossmatch See Detail 02/04/22 02/04/22 02/04/22 05:24 05:24 06:37 WBC 16.6 H RBC 2.52 L Hgb 8.3 L Hct 23.5 L D MCV 93 MCH 33 H MCHC 35 H RDW 14.9 Plt Count 264 Lymph % (Auto) [place] % (Auto) Eos % (Auto) Baso % (Auto) Lymph # (Auto) [place] # (Auto) Eos # (Auto) Baso # (Auto) Seg Neutrophils % Seg Neutrophils # Sodium Potassium Chloride Carbon Dioxide Anion Gap BUN Creatinine Estimated GFR BUN/Creatinine Ratio Glucose POC Glucose 373 H Hemoglobin A1c 5.8 Calcium Blood Type Antibody Screen Crossmatch 02/04/22 11:39 WBC RBC Hgb Hct MCV MCH MCHC RDW Plt Count Lymph % (Auto) [place] % (Auto) Eos % (Auto) Baso % (Auto) Lymph # (Auto) [place] # (Auto) Eos # (Auto) Baso # (Auto) Seg Neutrophils % Seg Neutrophils # Sodium Potassium Chloride Carbon Dioxide Anion Gap BUN Creatinine Estimated GFR BUN/Creatinine Ratio Glucose POC Glucose 338 H Hemoglobin A1c Calcium Blood Type Antibody Screen Crossmatch Assessment and Plan Plan for EGD/colon - had been trying for thursday but unable to due to staffing conflicts Clears Wed, Golytely Thu, NPO past [place] Thu Differential diagnosis for the severe anemia includes polyps, AVM, PUD, malignancy, etc - Patient Problems (1) Anemia due to gastrointestinal blood loss Current Visit: Yes Status: Acute (2) Occult GI bleeding Current Visit: Yes Status: Acute
[2022-02-04] MEDS ORDERED: POLYETHYLENE GLYCOL/ELECT SOLN 4000 ML PO SCH ×2 (15:00→17:00)
[2022-02-04 15:20] LABS: Hematocrit 25.4 % (35.5-45.6); Hemoglobin 8.5 gm/dl (11.8-15.2)
[2022-02-04 20:31] LABS: Mucus,Urine FEW /HPF
[2022-02-04 20:34] LABS: Color,Urine Yellow (Yellow); RBC,Urine < 1.0 /HPF (0.0-6.0)
[2022-02-04 20:35] LABS: Bilirubin,Urine Negative (Negative); Blood,Urine Negative (Negative); PH,Urine 6.5 (5.0-7.0); Protein,Urine <15 mg/dL mg/dL (Negative); Urobilinogen,Urine < 2.0 mg/dL (<2.0)
[2022-02-04 23:35] LABS: Hematocrit 23.3 % (35.5-45.6); Hemoglobin 8.1 gm/dl (11.8-15.2)
[2022-02-04] MEDS: INSULIN GLARGINE 100 UNITS/ML SUB-Q SCH (23:54)
[2022-02-05] MEDS: SODIUM CHLORIDE 0.9% 1000 ML 1,000 ML IV SCH ×2 (01:30→21:43)
[2022-02-05] MEDS: PANTOPRAZOLE 80 MG in SODIUM CHLORIDE 0.9% 100 ML IV SCH ×2 (03:15→13:31)
[2022-02-05 04:45] LABS: Basophils # (Auto) 0.1 K/mm3 (0.0-0.1); Basophils % (Auto) 0.5 % (0.0-1.8); Eosinophils # (Auto) 0.1 K/mm3 (0.0-0.4); Eosinophils % (Auto) 1.2 % (0.0-4.3); Hematocrit 21.3 % (35.5-45.6); Hemoglobin 7.4 gm/dl (11.8-15.2); Lymphocytes # (Auto) 1.8 K/mm3 (1.2-5.4); Lymphocytes % (Auto) 15.5 % (13.4-35.0); Mean Corpuscular HGB Conc 35 % (32-34); Mean Corpuscular Volume 94 fl (84-94); Monocytes # (Auto) 0.8 K/mm3 (0.0-0.8); Monocytes % (Auto) 6.9 % (0.0-7.3); Platelet Count 256 K/mm3 (140-440); Red Blood Count 2.27 M/mm3 (3.65-5.03); Red Cell Distribution Width 15.5 % (13.2-15.2)
[2022-02-05 05:05] LABS: Alanine Aminotransferase 8 units/L (7-56); Albumin 2.8 g/dL (3.9-5); BUN/Creatinine Ratio 23; Blood Urea Nitrogen 23 mg/dL (9-20); Calcium 7.4 mg/dL (8.4-10.2); Hemolysis Index 6
[2022-02-05] MEDS: INSULIN LISPRO 100 UNIT/ML SUB-Q SCH ×4 (08:46→21:36)
[2022-02-05] MEDS ORDERED: POTASSIUM CHLORIDE ER 20 MEQ TAB PO SCH (09:00)
--- NOTE | 2022-02-05 09:53 | Progress Note ---
Assessment and Plan Acute Blood Loss Anemia 2/2 GI Bleed Hypotension-resolved H/o Hypertension Type 2 Diabetes Mellitus with Hyperglycemia H/o Prostate Cancer DVT Prophylaxis -s/p 3 units of PRBCS, keep HgB>7g/dL -Monitor and replete electrolytes as clinically indicated -Plan for EGD and colonoscopy per GI tomorrow- unable to get it done today -Continue with therapeutic pantoprazole -Accuchecks with glycemic control.Continue sliding scale insulin for now -Avoid hypoglycemia -SCDs while in bed -Continue to monitor hemodynamics closely -Continue to home anti-hypertensives until his blood pressure recovers -Can transfer to telemetry while he waits for GI endoscopies Subjective Date of service: 02/05/22 Interval history: This is a 56-year-old male with known past medical history of type 2 diabetes mellitus and prostate CA admitted for acute blood loss anemia secondary to GI bleed Seen and examined. Vitals, labs, medications, chart reviewed. Discussed in interdisciplinary rounds. Hemoglobin trending down, suboptimal glycemic control. He denies any chest pain, no shortness of breath, no fevers, no chills. No black stools, no bleeding per rectum Objective Vital Signs - 12hr 02/04/22 02/04/22 02/04/22 22:00 22:10 22:20 Temperature Pulse Rate 61 76 79 Pulse Rate [ From Monitor] Respiratory 23 22 22 Rate Blood Pressure 114/61 114/61 114/61 O2 Sat by Pulse 100 97 100 Oximetry 02/04/22 02/04/22 02/04/22 22:30 22:40 22:50 Temperature Pulse Rate 63 67 60 Pulse Rate [ From Monitor] Respiratory 20 21 20 Rate Blood Pressure 114/61 114/61 114/61 O2 Sat by Pulse 97 96 99 Oximetry 02/04/22 02/04/22 02/04/22 23:00 23:04 23:10 Temperature Pulse Rate 63 70 84 Pulse Rate [ From Monitor] Respiratory 22 21 19 Rate Blood Pressure 112/58 112/58 112/58 O2 Sat by Pulse 96 97 97 Oximetry 02/04/22 02/04/22 02/04/22 23:14 23:20 23:24 Temperature Pulse Rate 63 71 64 Pulse Rate [ From Monitor] Respiratory 22 27 H 20 Rate Blood Pressure 112/58 112/58 112/58 O2 Sat by Pulse 98 96 97 Oximetry 0802/04/22 02/04/22 23:30 23:36 23:40 Temperature Pulse Rate 66 69 70 Pulse Rate [ From Monitor] Respiratory 22 22 21 Rate Blood Pressure 112/58 112/58 112/58 O2 Sat by Pulse 97 97 97 Oximetry 02/04/22 02/04/22 02/05/22 23:44 23:50 00:00 Temperature 98.1 F Pulse Rate 71 75 64 Pulse Rate [ From Monitor] Respiratory 19 15 21 Rate Blood Pressure 112/58 112/58 118/57 O2 Sat by Pulse 97 96 97 Oximetry 02/05/22 02/05/22 02/05/22 00:10 00:20 00:30 Temperature Pulse Rate 67 65 70 Pulse Rate [ From Monitor] Respiratory 22 23 24 Rate Blood Pressure 112/58 112/58 112/58 O2 Sat by Pulse 97 97 99 Oximetry 02/05/22 02/05/22 02/05/22 00:40 00:50 01:00 Temperature Pulse Rate 68 72 65 Pulse Rate [ From Monitor] Respiratory 23 22 23 Rate Blood Pressure 118/57 118/57 123/68 O2 Sat by Pulse 98 97 97 Oximetry 02/05/22 02/05/22 02/05/22 01:10 01:20 01:30 Temperature Pulse Rate 76 70 78 Pulse Rate [ From Monitor] Respiratory 23 23 27 H Rate Blood Pressure 123/68 123/68 123/68 O2 Sat by Pulse 99 95 95 Oximetry 02/05/22 02/05/22 02/05/22 01:40 01:50 02:00 Temperature Pulse Rate 66 65 63 Pulse Rate [ From Monitor] Respiratory 20 22 22 Rate Blood Pressure 123/68 123/68 99/61 O2 Sat by Pulse 96 96 95 Oximetry 02/05/22 02/05/22 02/05/22 02:10 02:20 02:30 Temperature Pulse Rate 66 70 75 Pulse Rate [ From Monitor] Respiratory 21 20 21 Rate Blood Pressure 99/61 99/61 99/61 O2 Sat by Pulse 97 95 94 Oximetry 02/05/22 02/05/22 02/05/22 02:40 02:50 03:00 Temperature Pulse Rate 68 61 61 Pulse Rate [ From Monitor] Respiratory 21 21 23 Rate Blood Pressure 99/61 99/61 98/53 O2 Sat by Pulse 95 95 95 Oximetry 02/05/22 02/05/22 02/05/22 03:10 03:20 03:30 Temperature Pulse Rate 62 69 69 Pulse Rate [ From Monitor] Respiratory 21 26 H 23 Rate Blood Pressure 98/53 98/53 98/53 O2 Sat by Pulse 95 94 94 Oximetry 02/05/22 02/05/22 02/05/22 03:40 03:50 04:00 Temperature 98.0 F Pulse Rate 68 69 66 Pulse Rate [ From Monitor] Respiratory 29 H 21 22 Rate Blood Pressure 98/53 98/53 117/67 O2 Sat by Pulse 95 97 94 Oximetry 02/05/22 02/05/22 02/05/22 04:10 04:20 04:30 Temperature Pulse Rate 60 64 76 Pulse Rate [ From Monitor] Respiratory 21 20 24 Rate Blood Pressure 117/67 117/67 117/67 O2 Sat by Pulse 98 95 97 Oximetry 02/05/22 02/05/22 02/05/22 04:40 04:50 05:00 Temperature Pulse Rate 63 68 68 Pulse Rate [ From Monitor] Respiratory 22 22 22 Rate Blood Pressure 117/67 117/67 117/67 O2 Sat by Pulse 98 97 97 Oximetry 02/05/22 02/05/22 02/05/22 05:10 05:20 05:30 Temperature Pulse Rate 64 65 68 Pulse Rate [ From Monitor] Respiratory 22 22 24 Rate Blood Pressure 113/66 113/66 113/66 O2 Sat by Pulse 98 97 94 Oximetry 02/05/22 02/05/22 02/05/22 05:40 05:50 06:00 Temperature Pulse Rate 72 67 68 Pulse Rate [ From Monitor] Respiratory 24 23 24 Rate Blood Pressure 113/66 113/66 113/66 O2 Sat by Pulse 97 98 99 Oximetry 02/05/22 02/05/22 02/05/22 06:10 06:20 06:30 Temperature Pulse Rate 68 69 81 Pulse Rate [ From Monitor] Respiratory 23 24 23 Rate Blood Pressure 100/54 100/54 100/54 O2 Sat by Pulse 100 99 99 Oximetry 02/05/22 02/05/22 02/05/22 06:40 06:50 07:00 Temperature Pulse Rate 70 63 61 Pulse Rate [ From Monitor] Respiratory 22 17 23 Rate Blood Pressure 100/54 100/54 101/59 O2 Sat by Pulse 100 99 98 Oximetry 02/05/22 02/05/22 02/05/22 07:10 07:30 08:00 Temperature 98.2 F Pulse Rate 69 79 71 Pulse Rate [ 71 From Monitor] Respiratory 20 21 16 Rate Blood Pressure 101/59 101/59 111/65 O2 Sat by Pulse 97 96 97 Oximetry 02/05/22 02/05/22 08:30 09:00 Temperature Pulse Rate 89 73 Pulse Rate [ From Monitor] Respiratory 19 21 Rate Blood Pressure 111/65 114/67 O2 Sat by Pulse 98 99 Oximetry Constitutional: no acute distress, alert Eyes: non-icteric ENT: oropharynx moist Neck: supple, no lymphadenopathy Effort: normal Ascultation: Bilateral: clear Cardiovascular: regular rate and rhythm, other (S1,S2) Gastrointestinal: normoactive bowel sounds, soft, non-tender, non-distended Integumentary: normal Extremities: no cyanosis, no edema, pink and warm Neurologic: normal mental status, non-focal exam, pupils equal and round, CN II- XII normal, motor strength normal and CBC and BMP: 02/06/22 04:00 02/06/22 04:00 Abnormal lab findings: Abnormal Labs 02/03/22 02/03/22 02/03/22 20:19 20:24 20:44 WBC 16.2 H RBC 1.66 L Hgb 5.8 L* Hct 16.6 L* MCV 100 H MCH 35 H MCHC 35 H RDW 12.4 L Lymph % (Auto) 11.6 L [place] # (Auto) 1.1 H Seg Neutrophils % 81.4 H Seg Neutrophils # 13.2 H Sodium 132 L Potassium Chloride 93.9 L BUN 56 H Creatinine 1.6 H Glucose 551 H* POC Glucose 505 H Calcium Alkaline Phosphatase Total Protein Albumin Crossmatch 02/03/22 02/03/22 02/04/22 21:53 22:45 04:00 WBC RBC Hgb Hct MCV MCH MCHC RDW Lymph % (Auto) [place] # (Auto) Seg Neutrophils % Seg Neutrophils # Sodium 133 L Potassium Chloride BUN 47 H Creatinine Glucose 415 H POC Glucose 368 H Calcium 8.0 L Alkaline Phosphatase Total Protein Albumin Crossmatch See Detail 02/04/22 02/04/22 02/04/22 05:24 06:37 11:39 WBC 16.6 H RBC 2.52 L Hgb 8.3 L Hct 23.5 L D MCV MCH 33 H MCHC 35 H RDW Lymph % (Auto) [place] # (Auto) Seg Neutrophils % Seg Neutrophils # Sodium Potassium Chloride BUN Creatinine Glucose POC Glucose 373 H 338 H Calcium Alkaline Phosphatase Total Protein Albumin Crossmatch 02/04/22 02/04/22 02/04/22 14:00 16:32 23:18 WBC RBC Hgb 8.5 L 8.1 L Hct 25.4 L 23.3 L MCV MCH MCHC RDW Lymph % (Auto) [place] # (Auto) Seg Neutrophils % Seg Neutrophils # Sodium Potassium Chloride BUN Creatinine Glucose POC Glucose 189 H Calcium Alkaline Phosphatase Total Protein Albumin Crossmatch 02/04/22 02/05/22 02/05/22 23:50 04:28 04:28 WBC 11.3 H RBC 2.27 L Hgb 7.4 L Hct 21.3 L MCV MCH 33 H MCHC 35 H RDW 15.5 H Lymph % (Auto) [place] # (Auto) Seg Neutrophils % 75.9 H Seg Neutrophils # 8.6 H Sodium Potassium 3.2 L Chloride BUN 23 H Creatinine Glucose 171 H POC Glucose 274 H Calcium 7.4 L Alkaline Phosphatase 31 L Total Protein 4.6 L Albumin 2.8 L Crossmatch 02/05/22 08:15 WBC RBC Hgb Hct MCV MCH MCHC RDW Lymph % (Auto) [place] # (Auto) Seg Neutrophils % Seg Neutrophils # Sodium Potassium Chloride BUN Creatinine Glucose POC Glucose 187 H Calcium Alkaline Phosphatase Total Protein Albumin Crossmatch Allied health notes reviewed: nursing
--- NOTE | 2022-02-05 10:58 | Gastroenterology Progress Note ---
Assessment and Plan Plan for EGD/colon - had been trying for today but unable to due to staffing conflicts Clears Wed, Gol[place] Thu night, NPO past [place] Thu night Differential diagnosis for the severe anemia includes polyps, AVM, PUD, malignancy, etc - Patient Problems (1) Anemia due to gastrointestinal blood loss Current Visit: Yes Status: Acute (2) Occult GI bleeding Current Visit: Yes Status: Acute Subjective Date of service: 02/05/22 Principal diagnosis: Anemia due to GI bleed Interval history: Patient reports still no bleeding overnight Repeat hemoglobin down somewhat compared to yesterday Patient denies any current GI symptoms Objective - Constitutional Vitals: Temp Pulse Resp BP Pulse Ox 98.2 F 68 23 97/61 97 02/05/22 08:00 02/05/22 10:00 02/05/22 10:00 02/05/22 10:00 02/05/22 09:30 General appearance: no acute distress - EENT Eyes: EOM intact - Respiratory Respiratory effort: normal - Cardiovascular Rhythm: regular - Gastrointestinal General gastrointestinal: Present: soft, tender - Neurologic Neurological: alert and oriented x3 - Labs CBC & Chem 7: 02/05/22 04:28 02/05/22 04:28 Labs: Laboratory Results - last 24 hr 02/04/22 02/04/22 02/04/22 11:39 14:00 16:32 WBC RBC Hgb 8.5 L Hct 25.4 L MCV MCH MCHC RDW Plt Count Lymph % (Auto) [place] % (Auto) Eos % (Auto) Baso % (Auto) Lymph # (Auto) [place] # (Auto) Eos # (Auto) Baso # (Auto) Seg Neutrophils % Seg Neutrophils # Sodium Potassium Chloride Carbon Dioxide Anion Gap BUN Creatinine Estimated GFR BUN/Creatinine Ratio Glucose POC Glucose 338 H 189 H Calcium Total Bilirubin AST ALT Alkaline Phosphatase Total Protein Albumin Albumin/Globulin Ratio Urine Color Urine Turbidity Urine pH Ur Specific [place] Urine Protein Urine Glucose (UA) Urine Ketones Urine Blood Urine Nitrite Urine Bilirubin Urine Urobilinogen Ur Leukocyte Esterase Urine WBC (Auto) Urine RBC (Auto) Urine Mucus 02/04/22 02/04/22 02/04/22 17:47 23:18 23:50 WBC RBC Hgb 8.1 L Hct 23.3 L MCV MCH MCHC RDW Plt Count Lymph % (Auto) [place] % (Auto) Eos % (Auto) Baso % (Auto) Lymph # (Auto) [place] # (Auto) Eos # (Auto) Baso # (Auto) Seg Neutrophils % Seg Neutrophils # Sodium Potassium Chloride Carbon Dioxide Anion Gap BUN Creatinine Estimated GFR BUN/Creatinine Ratio Glucose POC Glucose 274 H Calcium Total Bilirubin AST ALT Alkaline Phosphatase Total Protein Albumin Albumin/Globulin Ratio Urine Color Yellow Urine Turbidity Clear Urine pH 6.5 Ur Specific [place] 1.005 Urine Protein <15 mg/dl Urine Glucose (UA) 2000 Urine Ketones Negative Urine Blood Negative Urine Nitrite Negative Urine Bilirubin Negative Urine Urobilinogen < 2.0 Ur Leukocyte Esterase Negative Urine WBC (Auto) 1.0 Urine RBC (Auto) < 1.0 Urine Mucus Few 02/05/22 02/05/22 02/05/22 04:28 04:28 08:15 WBC 11.3 H RBC 2.27 L Hgb 7.4 L Hct 21.3 L MCV 94 MCH 33 H MCHC 35 H RDW 15.5 H Plt Count 256 Lymph % (Auto) 15.5 [place] % (Auto) 6.9 Eos % (Auto) 1.2 Baso % (Auto) 0.5 Lymph # (Auto) 1.8 [place] # (Auto) 0.8 Eos # (Auto) 0.1 Baso # (Auto) 0.1 Seg Neutrophils % 75.9 H Seg Neutrophils # 8.6 H Sodium 139 Potassium 3.2 L Chloride 105.8 Carbon Dioxide 24 Anion Gap 12 BUN 23 H Creatinine 1.0 Estimated GFR > 60 BUN/Creatinine Ratio 23 Glucose 171 H POC Glucose 187 H Calcium 7.4 L Total Bilirubin 0.40 AST 11 ALT 8 Alkaline Phosphatase 31 L Total Protein 4.6 L Albumin 2.8 L Albumin/Globulin Ratio 1.6 Urine Color Urine Turbidity Urine pH Ur Specific [place] Urine Protein Urine Glucose (UA) Urine Ketones Urine Blood Urine Nitrite Urine Bilirubin Urine Urobilinogen Ur Leukocyte Esterase Urine WBC (Auto) Urine RBC (Auto) Urine Mucus
--- NOTE | 2022-02-05 11:28 | Progress Note ---
<RAMOS VILLAGOMEZ - Last Filed: 02/05/22 14:41> Assessment and Plan Assessment and plan: This is a 56-year-old male with known past medical history of type 2 diabetes mellitus and prostate CA admitted for acute blood loss anemia secondary to GI bleed Hospital Course to Date: 02/04: s/p 3units of PRBCs, H&H stable, no s/s of any active bleeding since admit. GI consulted, plan for possible EGD/colonoscopy tomorrow. Clear liquid diet today, NPO after midnight tonight. Continue protonix gtt and trend H&H Q8hrs. Remains hyperglycemic SSI adjusted and Lantus added Qhs. 02/05: H&H trending down, no s/s of any active bleeding reported, VSS. Plan for EGD/colonoscopy tomorrow per GI. Continue clear liquid diet and protonix gtt. Continue to trend H&H transfuse for Hgb less than 7. BG improved, continue SSI and qHs Lantus. Patient is stable for transfer to the floor Assessment and Plan #Acute Blood Loss Anemia 2/2 #GI Bleed - Presented with generalized weakness and dizziness and Hgb of 5.6 - Stool occult blood positive - Per patient black stools noted at home but none reported since admit - S/p 3 units of PRBCs - H&H stable, however trending down - no s/s of any active bleeding - GI Consulted, appreciate recommendations - Plan for possible EGD/colonoscopy tomorrow. - Clear liquid diet today, NPO after midnight tonight - Continue Protonix gtt - Continue to trend H&H #Hypotension-resolved #H/o Hypertension - Most likely secondary to above - BP improved post blood products - Hold antihypertensive therapy for now, until after scoping - Continue blood pressure monitor per protocol - Maintain MAP above 65 and SBP less than 160 #Type 2 Diabetes Mellitus with Hyperglycemia - Hgb A1c- 5.8, patient was on Metformin at home - Continue BG check ACHS and Lantus Qhs - While critically ill target blood glucose of 140-180 #Hypokalemia - K repleted - Monitor and replace electrolytes as needed - Strict intake and output #H/o Prostate Cancer - Per patient was diagnosed with prostate CA over a year ago, however he had not been following up with his doctor - Per patient, he has an appointment with his Urologist, Dr. Garcia for this upcoming Wednesday 02/07 to further discuss plan of care - Follow up with Urology and PCP outpatient #GI/DVT Prophylaxis - PPI- Protonix gtt - SCDs to bilateral lower extremities while in bed #Advance Care Planning - Disease education data, care plan, diagnoses, and prognosis were discussed with patient at the bedside. Patient is a FULL code. Patient acknowledged understanding and agreed with current care plan. The high probability of a clinically significant, sudden or life threatening deterioration of the [multiple] system(s) required my full and direct attention, intervention and personal management. The aggregate critical care time was [60] minutes. This time is in addition to time spent performing reported procedures but includes the following: [x] Data Review and interpretation [x] Patient assessment and monitoring of vital signs [x] Documentation [x] Medication orders and management Disposition Plan: ICU Total Time Spent with Patient (Minutes): 60 History Interval history: Patient seen and examined at the bedside. Fully AAO, on RA, denied any pain nor any discomfort at this time. Remains on protonix gtt. No black tarry stools reported form overnight, H&H stable, VSS. Hospitalist Physical - Constitutional Vitals: Temp Pulse Resp BP Pulse Ox 98.2 F 76 15 106/69 100 02/05/22 08:00 02/05/22 11:00 02/05/22 11:00 02/05/22 11:00 02/05/22 10:30 General appearance: Present: no acute distress, well-nourished, obese - EENT Eyes: Present: PERRL, EOM intact ENT: hearing intact, clear oral mucosa - Neck Neck: Present: normal ROM - Respiratory Respiratory effort: normal Respiratory: bilateral: CTA - Cardiovascular Rhythm: regular Heart Sounds: Present: S1 & S2 - Extremities Extremities: no ischemia, pulses intact, pulses symmetrical Peripheral Pulses: within normal limits - Abdominal General gastrointestinal: soft, non-distended, normal bowel sounds - Integumentary Integumentary: Present: clear, warm, dry - Psychiatric Psychiatric: appropriate mood/affect, cooperative - Neurologic Neurologic: CNII-XII intact, moves all extremities - Allied Health Allied health notes reviewed: nursing, case management Results - Labs CBC & Chem 7: 02/05/22 12:22 02/05/22 04:28 Labs: Laboratory Last Values WBC 11.3 K/mm3 (4.5-11.0) H 02/05/22 04:28 RBC 2.27 M/mm3 (3.65-5.03) L 02/05/22 04:28 Hgb 7.4 gm/dl (11.8-15.2) L 02/05/22 04:28 Hct 21.3 % (35.5-45.6) L 02/05/22 04:28 MCV 94 fl (84-94) 02/05/22 04:28 MCH 33 pg (28-32) H 02/05/22 04:28 MCHC 35 % (32-34) H 02/05/22 04:28 RDW 15.5 % (13.2-15.2) H 02/05/22 04:28 Plt Count 256 K/mm3 (140-440) 02/05/22 04:28 Lymph % (Auto) 15.5 % (13.4-35.0) 02/05/22 04:28 Stark % (Auto) 6.9 % (0.0-7.3) 02/05/22 04:28 Eos % (Auto) 1.2 % (0.0-4.3) 02/05/22 04:28 Baso % (Auto) 0.5 % (0.0-1.8) 02/05/22 04:28 Lymph # (Auto) 1.8 K/mm3 (1.2-5.4) 02/05/22 04:28 Stark # (Auto) 0.8 K/mm3 (0.0-0.8) 02/05/22 04:28 Eos # (Auto) 0.1 K/mm3 (0.0-0.4) 02/05/22 04:28 Baso # (Auto) 0.1 K/mm3 (0.0-0.1) 02/05/22 04:28 Seg Neutrophils % 75.9 % (40.0-70.0) H 02/05/22 04:28 Seg Neutrophils # 8.6 K/mm3 (1.8-7.7) H 02/05/22 04:28 Sodium 139 mmol/L (137-145) 02/05/22 04:28 Potassium 3.2 mmol/L (3.6-5.0) L 02/05/22 04:28 Chloride 105.8 mmol/L (98-107) 02/05/22 04:28 Carbon Dioxide 24 mmol/L (22-30) 02/05/22 04:28 Anion Gap 12 mmol/L 02/05/22 04:28 BUN 23 mg/dL (9-20) H 02/05/22 04:28 Creatinine 1.0 mg/dL (0.8-1.3) 02/05/22 04:28 Estimated GFR > 60 ml/min 02/05/22 04:28 BUN/Creatinine Ratio 23 % 02/05/22 04:28 Glucose 171 mg/dL (75-100) H 02/05/22 04:28 POC Glucose 154 mg/dL (70-105) H 02/05/22 11:14 Hemoglobin A1c 5.8 % (4-6) 02/04/22 05:24 Calcium 7.4 mg/dL (8.4-10.2) L 02/05/22 04:28 Total Bilirubin 0.40 mg/dL (0.1-1.2) 02/05/22 04:28 AST 11 units/L (5-40) 02/05/22 04:28 ALT 8 units/L (7-56) 02/05/22 04:28 Alkaline Phosphatase 31 units/L (35-129) L 02/05/22 04:28 Total Protein 4.6 g/dL (6.3-8.2) L 02/05/22 04:28 Albumin 2.8 g/dL (3.9-5) L 02/05/22 04:28 Albumin/Globulin Ratio 1.6 % 02/05/22 04:28 Urine Color Yellow (Yellow) 02/04/22 17:47 Urine Turbidity Clear (Clear) 02/04/22 17:47 Urine pH 6.5 (5.0-7.0) 02/04/22 17:47 Ur Specific Baxter 1.005 (1.003-1.030) 02/04/22 17:47 Urine Protein <15 mg/dl mg/dL (Negative) 02/04/22 17:47 Urine Glucose (UA) 2000 mg/dL (Negative) 02/04/22 17:47 Urine Ketones Negative mg/dL (Negative) 02/04/22 17:47 Urine Blood Negative (Negative) 02/04/22 17:47 Urine Nitrite Negative (Negative) 02/04/22 17:47 Urine Bilirubin Negative (Negative) 02/04/22 17:47 Urine Urobilinogen < 2.0 mg/dL (<2.0) 02/04/22 17:47 Ur Leukocyte Esterase Negative (Negative) 02/04/22 17:47 Urine WBC (Auto) 1.0 /HPF (0.0-6.0) 02/04/22 17:47 Urine RBC (Auto) < 1.0 /HPF (0.0-6.0) 02/04/22 17:47 Urine Mucus Few /HPF 02/04/22 17:47 Blood Type O POSITIVE 02/03/22 21:53 Antibody Screen Negative 02/03/22 21:53 Crossmatch See Detail 02/03/22 21:53 Greenfield/IV: Voiding Method Urinal Active Medications - Current Medications Current Medications: Generic Name Dose Route Start Last Admin Trade Name Freq PRN Reason Stop Dose Admin Acetaminophen 650 mg 02/03/22 23:45 Acetaminophen 325 Mg Tab PO Q6H PRN Pain MILD(1-3)/Fever >100.5/LUIS Dextrose 50 ml 02/03/22 23:45 Dextrose 50% In Water (25gm) 50 Ml Syringe IV Q30MIN PRN Hypoglycemia Protocol Pantoprazole Sodium 80 mg/ 100 mls @ 10 mls/hr 02/03/22 23:45 02/05/22 03:15 Sodium Chloride IV 8 mg/hr DIRECT SHARI 10 mls/hr Administration 8 MG/HR Sodium Chloride 1,000 mls @ 75 mls/hr 02/03/22 23:45 02/05/22 01:30 Nacl 0.9% 1000 Ml IV 75 mls/hr DIRECT SHARI Administration Insulin Glargine 20 units 02/04/22 22:00 02/04/22 23:54 Insulin Glargine 100 Units/Ml SUB-Q 20 units QHS SHARI Administration Insulin Human Lispro 0 unit 02/04/22 07:30 02/05/22 08:46 Insulin Lispro 100 Unit/Ml SUB-Q 3 unit ACHS SHARI Administration Protocol Morphine Sulfate 2 mg 02/03/22 23:45 Morphine 2 Mg/1 Ml Inj IV Q4H PRN Pain, Moderate (4-6) Ondansetron HCl 4 mg 02/03/22 23:45 Ondansetron 4 Mg/2 Ml Inj IV Q8H PRN Nausea And Vomiting Polyethylene Glycol/Electrolytes 4,000 ml 02/05/22 15:00 Polyethylene Glycol/Elect Soln 4000 Ml PO 02/06/22 14:59 ONCE@1500 SHARI Potassium Chloride 40 meq 02/05/22 09:00 02/05/22 09:18 Potassium Chloride Er 20 Meq Tab PO 02/05/22 13:00 40 meq ONCE@0900 SHARI Administration Sodium Chloride 10 ml 02/04/22 10:00 02/05/22 09:19 Sodium Chloride 0.9% 10 Ml Flush Syringe IV 10 ml BID SHARI Administration Sodium Chloride 10 ml 02/03/22 23:45 Sodium Chloride 0.9% 10 Ml Flush Syringe IV PRN PRN LINE FLUSH <NICOLE MIRANDA - Last Filed: 02/06/22 07:33> Assessment and Plan Assessment and plan: I saw and evaluated the patient. I agree with the findings and the plan of care as documented in the Nurse Practitioner's~note, with the following corrections and additions. Hospitalist Physical - Constitutional Vitals: Temp Pulse Resp BP Pulse Ox 98.1 F 75 16 119/74 97 02/06/22 03:14 02/06/22 03:14 02/06/22 03:14 02/06/22 03:14 02/06/22 03:14 Results - Labs CBC & Chem 7: 02/06/22 04:00 02/06/22 04:00 Labs: Laboratory Last Values WBC 8.6 K/mm3 (4.5-11.0) 02/06/22 04:00 RBC 2.02 M/mm3 (3.65-5.03) L 02/06/22 04:00 Hgb 7.0 gm/dl (11.8-15.2) L 02/06/22 04:00 Hct 19.1 % (35.5-45.6) L* 02/06/22 04:00 MCV 94 fl (84-94) 02/06/22 04:00 MCH 35 pg (28-32) H 02/06/22 04:00 MCHC 37 % (32-34) H 02/06/22 04:00 RDW 16.5 % (13.2-15.2) H 02/06/22 04:00 Plt Count 245 K/mm3 (140-440) 02/06/22 04:00 Lymph % (Auto) 15.5 % (13.4-35.0) 02/05/22 04:28 Stark % (Auto) 6.9 % (0.0-7.3) 02/05/22 04:28 Eos % (Auto) 1.2 % (0.0-4.3) 02/05/22 04:28 Baso % (Auto) 0.5 % (0.0-1.8) 02/05/22 04:28 Lymph # (Auto) 1.8 K/mm3 (1.2-5.4) 02/05/22 04:28 Stark # (Auto) 0.8 K/mm3 (0.0-0.8) 02/05/22 04:28 Eos # (Auto) 0.1 K/mm3 (0.0-0.4) 02/05/22 04:28 Baso # (Auto) 0.1 K/mm3 (0.0-0.1) 02/05/22 04:28 Seg Neutrophils % 75.9 % (40.0-70.0) H 02/05/22 04:28 Seg Neutrophils # 8.6 K/mm3 (1.8-7.7) H 02/05/22 04:28 PT 15.5 Sec. (12.2-14.9) H 02/06/22 04:00 INR 1.08 (0.87-1.13) 02/06/22 04:00 Sodium 141 mmol/L (137-145) 02/06/22 04:00 Potassium 3.5 mmol/L (3.6-5.0) L 02/06/22 04:00 Chloride 109.6 mmol/L (98-107) H 02/06/22 04:00 Carbon Dioxide 21 mmol/L (22-30) L 02/06/22 04:00 Anion Gap 14 mmol/L 02/06/22 04:00 BUN 14 mg/dL (9-20) 02/06/22 04:00 Creatinine 1.1 mg/dL (0.8-1.3) 02/06/22 04:00 Estimated GFR > 60 ml/min 02/06/22 04:00 BUN/Creatinine Ratio 13 % 02/06/22 04:00 Glucose 164 mg/dL (75-100) H 02/06/22 04:00 POC Glucose 139 mg/dL (70-105) H 02/05/22 21:12 Hemoglobin A1c 5.8 % (4-6) 02/04/22 05:24 Calcium 7.6 mg/dL (8.4-10.2) L 02/06/22 04:00 Phosphorus 2.60 mg/dL (2.5-4.5) 02/06/22 04:00 Magnesium 1.60 mg/dL (1.7-2.3) L 02/06/22 04:00 Total Bilirubin 0.40 mg/dL (0.1-1.2) 02/05/22 04:28 AST 11 units/L (5-40) 02/05/22 04:28 ALT 8 units/L (7-56) 02/05/22 04:28 Alkaline Phosphatase 31 units/L (35-129) L 02/05/22 04:28 Total Protein 4.6 g/dL (6.3-8.2) L 02/05/22 04:28 Albumin 2.8 g/dL (3.9-5) L 02/05/22 04:28 Albumin/Globulin Ratio 1.6 % 02/05/22 04:28 Urine Color Yellow (Yellow) 02/04/22 17:47 Urine Turbidity Clear (Clear) 02/04/22 17:47 Urine pH 6.5 (5.0-7.0) 02/04/22 17:47 Ur Specific Baxter 1.005 (1.003-1.030) 02/04/22 17:47 Urine Protein <15 mg/dl mg/dL (Negative) 02/04/22 17:47 Urine Glucose (UA) 2000 mg/dL (Negative) 02/04/22 17:47 Urine Ketones Negative mg/dL (Negative) 02/04/22 17:47 Urine Blood Negative (Negative) 02/04/22 17:47 Urine Nitrite Negative (Negative) 02/04/22 17:47 Urine Bilirubin Negative (Negative) 02/04/22 17:47 Urine Urobilinogen < 2.0 mg/dL (<2.0) 02/04/22 17:47 Ur Leukocyte Esterase Negative (Negative) 02/04/22 17:47 Urine WBC (Auto) 1.0 /HPF (0.0-6.0) 02/04/22 17:47 Urine RBC (Auto) < 1.0 /HPF (0.0-6.0) 02/04/22 17:47 Urine Mucus Few /HPF 02/04/22 17:47 Blood Type O POSITIVE 02/03/22 21:53 Antibody Screen Negative 02/03/22 21:53 Crossmatch See Detail 02/03/22 21:53 Greenfield/IV: Voiding Method Bedside Commode Active Medications - Current Medications Current Medications: Generic Name Dose Route Start Last Admin Trade Name Freq PRN Reason Stop Dose Admin Acetaminophen 650 mg 02/03/22 23:45 02/05/22 20:45 Acetaminophen 325 Mg Tab PO 650 mg Q6H PRN Administration Pain MILD(1-3)/Fever >100.5/LUIS Dextrose 50 ml 02/03/22 23:45 Dextrose 50% In Water (25gm) 50 Ml Syringe IV Q30MIN PRN Hypoglycemia Protocol Pantoprazole Sodium 80 mg/ 100 mls @ 10 mls/hr 02/03/22 23:45 02/06/22 05:09 Sodium Chloride IV 8 mg/hr DIRECT SHARI 10 mls/hr Administration 8 MG/HR Sodium Chloride 1,000 mls @ 75 mls/hr 02/03/22 23:45 02/05/22 21:43 Nacl 0.9% 1000 Ml IV 75 mls/hr DIRECT SHARI Administration Insulin Glargine 20 units 02/04/22 22:00 02/05/22 21:37 Insulin Glargine 100 Units/Ml SUB-Q Not Given QHS [facility] Insulin Human Lispro 0 unit 02/04/22 07:30 02/05/22 21:36 Insulin Lispro 100 Unit/Ml SUB-Q Not Given ACHS [facility] Protocol Morphine Sulfate 2 mg 02/03/22 23:45 Morphine 2 Mg/1 Ml Inj IV Q4H PRN Pain, Moderate (4-6) Ondansetron HCl 4 mg 02/03/22 23:45 Ondansetron 4 Mg/2 Ml Inj IV Q8H PRN Nausea And Vomiting Polyethylene Glycol/Electrolytes 4,000 ml 02/05/22 15:00 02/05/22 15:15 Polyethylene Glycol/Elect Soln 4000 Ml PO 02/06/22 14:59 4,000 ml ONCE@1500 SHARI Administration Sodium Chloride 10 ml 02/04/22 10:00 02/05/22 21:43 Sodium Chloride 0.9% 10 Ml Flush Syringe IV 10 ml BID SHARI Administration Sodium Chloride 10 ml 02/03/22 23:45 Sodium Chloride 0.9% 10 Ml Flush Syringe IV PRN PRN LINE FLUSH
[2022-02-05 12:54] LABS: Hematocrit 22.6 % (35.5-45.6); Hemoglobin 7.6 gm/dl (11.8-15.2)
[2022-02-05] MEDS ORDERED: POLYETHYLENE GLYCOL/ELECT SOLN 4000 ML PO SCH (15:00)
[2022-02-05] MEDS: INSULIN GLARGINE 100 UNITS/ML SUB-Q SCH (21:37)
[2022-02-06 00:42] LABS: Hematocrit 21.1 % (35.5-45.6); Hemoglobin 7.3 gm/dl (11.8-15.2)
[2022-02-06] MEDS: PANTOPRAZOLE 80 MG in SODIUM CHLORIDE 0.9% 100 ML IV SCH (05:09)
[2022-02-06 05:49] LABS: Mean Corpuscular HGB Conc 37 % (32-34); Mean Corpuscular Volume 94 fl (84-94); Platelet Count 245 K/mm3 (140-440); Red Blood Count 2.02 M/mm3 (3.65-5.03); Red Cell Distribution Width 16.5 % (13.2-15.2)
[2022-02-06 06:00] LABS: INR 1.08 (0.87-1.13)
[2022-02-06 06:02] LABS: Hematocrit 19.1 % (35.5-45.6)
[2022-02-06 06:12] LABS: BUN/Creatinine Ratio 13; Blood Urea Nitrogen 14 mg/dL (9-20); Calcium 7.6 mg/dL (8.4-10.2); Hemolysis Index 2
[2022-02-06] MEDS: INSULIN LISPRO 100 UNIT/ML SUB-Q SCH ×4 (08:45→22:47)
--- NOTE | 2022-02-06 08:45 | Anesthesia Consultation ---
Anesthesia Consult and Med Hx Date of service: 02/06/22 - Airway Anesthetic Teeth Evaluation: Poor (multiple missing teeth) ROM Head & Neck: Adequate Mental/Hyoid Distance: Adequate Mallampati Class: Class II Intubation Access Assessment: Probably Good - Pre-Operative Health Status ASA Pre-Surgery Classification: ASA3 Proposed Anesthetic Plan: MAC - Cardiovascular System Hx Hypertension: Yes - Gastrointestinal Hx Ulcer: Yes - Endocrine Hx Non-Insulin Dependent Diabetes: Yes - Hematic Hx Anemia: Yes - Other Systems Hx Cancer: Yes (prostate CA, recently diagnosed)
--- NOTE | 2022-02-06 08:45 | Anesthesia Day of Surgery ---
Anesthesia Day of Surgery - Day of Surgery Patient Examined: Yes Patient H&P Reviewed: Yes Patient is NPO: Yes
[2022-02-06] MEDS ORDERED: propofoL 200 MG/20 ML VIAL IV ONE ×2 (08:47→08:59)
--- NOTE | 2022-02-06 09:20 | Operative Report ---
Operative Report Operative Report: DOS: 02/06/22 SURGEON: Deo Francis MD COLONOSCOPY with snare polypectomy REPORT PREOPERATIVE AND POSTOPERATIVE DIAGNOSIS: Anemia, Melena DESCRIPTION OF PROCEDURE: The colonoscope was passed to the terminal ileum as identified by the ileal tissue. Scope was carefully withdrawn. Retroflexion was performed in the rectum. At the end of procedure, the scope was cleaned using normal technique. Vital signs monitored continuously throughout. SEDATION: Provided by Anesthesiology Services. Quality of the prep was adequate. COMPLICATIONS: None. ESTIMATED BLOOD LOSS: minimal FINDINGS: * Normal terminal ileum * Mild scattered diverticulosis throughout the colon * 5 mm sessile polyp in the sigmoid colon removed by cold snare polypectomy * Small nonbleeding internal hemorrhoids * Remainder of exam unremarkable RECOMMENDATIONS: Anemia is due to the duodenal ulcer. Follow-up pathology results Pantoprazole 40 mg twice daily Restarting patient on diet Once hemoglobin stable for 24 hours can discharge with outpatient follow-up. Transfuse for hemoglobin less than 7 Ulcer is too large for endoscopic therapy, and also had no high risk stigmata so is low risk for recurrent bleed. Therefore, GI will sign off Patient should have repeat colonoscopy in 5 years
--- NOTE | 2022-02-06 09:22 | Operative Report ---
Operative Report Operative Report: DOS: 02/06/22 SURGEON: Deo Francis MD EGD WITH BIOPSY REPORT PREOPERATIVE DIAGNOSIS and POSTOPERATIVE DIAGNOSIS: Anemia, melena ESTIMATED BLOOD LOSS: Minimal DESCRIPTION OF PROCEDURE: A high-resolution peds colonoscope was passed through the oropharynx, esophagus, stomach, and second portion of duodenum. The scope was carefully withdrawn. Retroflexion was performed in the stomach. At the end of the procedure, the scope was cleaned using normal technique. Vital signs monitored continuously throughout. SEDATION: Provided by [facility]. COMPLICATIONS: None. FINDINGS: * Normal second portion of the duodenum * Large ulcer in the duodenal bulb extending duodenal sweep. About 2 cm x 5 cm. Clean-based with no high risk stigmata. Heaped up edges. On the anterior wall. Cold forceps used to obtain multiple biopsies from the edges as well as base of the duodenal ulcer rule out dysplasia * Mild gastritis of the antrum and body of the stomach. Biopsies were taken to rule out H. Pylori infection. A total of 5 biopsies were taken, 2 from the antrum, 1 from the incisura, 2 from the body. * There was a 3 mm sessile polyp in the gastric antrum which was removed by cold forceps biopsy and placed and the same bottle as H. pylori biopsies * Z-line irregular 41 cm in incisors * Remainder of exam unremarkable RECOMMENDATIONS: Anemia is due to the duodenal ulcer. Follow-up pathology results Pantoprazole 40 mg twice daily Restarting patient on diet Once hemoglobin stable for 24 hours can discharge with outpatient follow-up. Transfuse for hemoglobin less than 7 Ulcer is too large for endoscopic therapy, and also had no high risk stigmata so is low risk for recurrent bleed. Therefore, GI will sign off Patient should have repeat colonoscopy in 5 years
[2022-02-06] MEDS: PANTOPRAZOLE 40 MG TAB PO SCH ×2 (11:35→22:48)
--- NOTE | 2022-02-06 12:27 | Progress Note ---
Assessment and Plan 56-year-old male with known history of diabetes mellitus and prostate cancer diagnosed about a year ago presenting to the emergency room complaining of generalized weakness and dizziness. Patient has refused to follow-up with us for prostate cancer since last year. He also indicates that his blood sugar has been high. He denies any fever or chills, no chest pain or shortness of breath, no headache or diaphoresis. Denies any abdominal pain, no hematuria or dysuria. He also indicates that he has been having some bloody stool. He denies any use of nonsteroidal anti-inflammatory medication. Work-up in the emergency room today reveals an elevated blood glucose in the 500s. Hemoglobin of 5.6. CT angiogram of the abdomen and pelvis was unremarkable. Patient receved blood transfusion 4 units PRBC Forepart Rounder on-call consulted. Patient has no history of smoking, alcohol or drug abuse. 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 . 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 No known drug allergies. Patient awake, weak. Resting on room air. O2 saturation 98%. No acute respiratory distress at rest. Patient afebrile. No Leukocytosis. Blood pressure 103/58 , Pulse 72 , Respirations 18. Patients to days 02/06/22 HGB 7.0, Hematocrit 19.1 after blood transfusion. Chest xray done 02/06/22 reported no acute findings. Patient is on I/V fluids and protonix.S/C Insulin. Patients sister at bed side. Explained patients respiratory status. - Patient Problems (1) Anemia due to gastrointestinal blood loss Current Visit: Yes Status: Acute Plan to address problem: Patient received blood transfusion 4 units PRBC. Patients to days 02/06/22 HGB 7.0. Gastroenterology on consult. (2) Hyperglycemia due to type 2 diabetes mellitus Current Visit: Yes Status: Acute Plan to address problem: Management as per primary care. (3) Prostate cancer Current Visit: Yes Status: Acute Plan to address problem: Patient has history of prostate cancer. Patient non compliant. Patient did not follow on prostate cancer. Recommend to consult urology and Oncology. Subjective Date of service: 02/06/22 Principal diagnosis: Anemia due to GI bleed Interval history: 56-year-old male with known history of diabetes mellitus and prostate cancer diagnosed about a year ago presenting to the emergency room complaining of generalized weakness and dizziness. Patient has refused to follow-up with us for prostate cancer since last year. He also indicates that his blood sugar has been high. He denies any fever or chills, no chest pain or shortness of breath, no headache or diaphoresis. Denies any abdominal pain, no hematuria or dysuria. He also indicates that he has been having some bloody stool. He denies any use of nonsteroidal anti-inflammatory medication. Work-up in the emergency room today reveals an elevated blood glucose in the 500s. Hemoglobin of 5.6. CT angiogram of the abdomen and pelvis was unremarkable. Patient receved blood transfusion 4 units PRBC Forepart Rounder on-call consulted. Patient has no history of smoking, alcohol or drug abuse. 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 . 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 No known drug allergies. Patient awake, weak. Resting on room air. O2 saturation 98%. No acute respiratory distress at rest. Patient afebrile. No Leukocytosis. Blood pressure 103/58 , Pulse 72 , Respirations 18. Patients to days 02/06/22 HGB 7.0, Hematocrit 19.1 after blood transfusion. Chest xray done 02/06/22 reported no acute findings. Patient is on I/V fluids and protonix.S/C Insulin. Patients sister at bed side. Explained patients respiratory status. Objective Vital Signs - 12hr 02/06/22 02/06/22 02/06/22 03:14 08:24 09:10 Temperature 98.1 F 99 F 99 F Pulse Rate 75 81 99 H Respiratory 16 22 10 L Rate Blood Pressure 119/74 111/57 89/51 O2 Sat by Pulse 97 99 98 Oximetry 02/06/22 02/06/22 02/06/22 09:15 09:20 09:25 Temperature Pulse Rate 95 H 84 81 Respiratory 21 22 22 Rate Blood Pressure 99/53 98/53 105/56 O2 Sat by Pulse 100 100 100 Oximetry 02/06/22 02/06/22 02/06/22 09:30 09:35 09:45 Temperature 98.1 F Pulse Rate 83 81 81 Respiratory 24 22 20 Rate Blood Pressure 108/61 111/57 113/71 O2 Sat by Pulse 99 99 99 Oximetry Constitutional: no acute distress, alert, other (weak) Eyes: non-icteric ENT: oropharynx moist Neck: supple, no lymphadenopathy Effort: normal Ascultation: Bilateral: clear Cardiovascular: regular rate and rhythm Gastrointestinal: normoactive bowel sounds, soft, non-tender Integumentary: normal Extremities: no cyanosis, no edema Neurologic: normal mental status, non-focal exam, pupils equal and round Psychiatric: depressed CBC and BMP: 02/06/22 04:00 02/06/22 04:00 ABG, PT/INR, D-dimer: PT/INR, D-dimer PT 15.5 Sec. (12.2-14.9) H 02/06/22 04:00 INR 1.08 (0.87-1.13) 02/06/22 04:00 Abnormal lab findings: Abnormal Labs 02/03/22 02/03/22 02/03/22 20:19 20:24 20:44 WBC 16.2 H RBC 1.66 L Hgb 5.8 L* Hct 16.6 L* MCV 100 H MCH 35 H MCHC 35 H RDW 12.4 L Lymph % (Auto) 11.6 L [place] # (Auto) 1.1 H Seg Neutrophils % 81.4 H Seg Neutrophils # 13.2 H PT Sodium 132 L Potassium Chloride 93.9 L Carbon Dioxide BUN 56 H Creatinine 1.6 H Glucose 551 H* POC Glucose 505 H Calcium Magnesium Alkaline Phosphatase Total Protein Albumin Crossmatch 02/03/22 02/03/22 02/04/22 21:53 22:45 04:00 WBC RBC Hgb Hct MCV MCH MCHC RDW Lymph % (Auto) [place] # (Auto) Seg Neutrophils % Seg Neutrophils # PT Sodium 133 L Potassium Chloride Carbon Dioxide BUN 47 H Creatinine Glucose 415 H POC Glucose 368 H Calcium 8.0 L Magnesium Alkaline Phosphatase Total Protein Albumin Crossmatch See Detail 02/04/22 02/04/22 02/04/22 05:24 06:37 11:39 WBC 16.6 H RBC 2.52 L Hgb 8.3 L Hct 23.5 L D MCV MCH 33 H MCHC 35 H RDW Lymph % (Auto) [place] # (Auto) Seg Neutrophils % Seg Neutrophils # PT Sodium Potassium Chloride Carbon Dioxide BUN Creatinine Glucose POC Glucose 373 H 338 H Calcium Magnesium Alkaline Phosphatase Total Protein Albumin Crossmatch 02/04/22 02/04/22 02/04/22 14:00 16:32 23:18 WBC RBC Hgb 8.5 L 8.1 L Hct 25.4 L 23.3 L MCV MCH MCHC RDW Lymph % (Auto) [place] # (Auto) Seg Neutrophils % Seg Neutrophils # PT Sodium Potassium Chloride Carbon Dioxide BUN Creatinine Glucose POC Glucose 189 H Calcium Magnesium Alkaline Phosphatase Total Protein Albumin Crossmatch 02/04/22 02/05/22 02/05/22 23:50 04:28 04:28 WBC 11.3 H RBC 2.27 L Hgb 7.4 L Hct 21.3 L MCV MCH 33 H MCHC 35 H RDW 15.5 H Lymph % (Auto) [place] # (Auto) Seg Neutrophils % 75.9 H Seg Neutrophils # 8.6 H PT Sodium Potassium 3.2 L Chloride Carbon Dioxide BUN 23 H Creatinine Glucose 171 H POC Glucose 274 H Calcium 7.4 L Magnesium Alkaline Phosphatase 31 L Total Protein 4.6 L Albumin 2.8 L Crossmatch 02/05/22 02/05/22 02/05/22 08:15 11:14 12:22 WBC RBC Hgb 7.6 L Hct 22.6 L MCV MCH MCHC RDW Lymph % (Auto) [place] # (Auto) Seg Neutrophils % Seg Neutrophils # PT Sodium Potassium Chloride Carbon Dioxide BUN Creatinine Glucose POC Glucose 187 H 154 H Calcium Magnesium Alkaline Phosphatase Total Protein Albumin Crossmatch 02/05/22 02/05/22 02/05/22 16:49 21:12 23:05 WBC RBC Hgb 7.3 L Hct 21.1 L MCV MCH MCHC RDW Lymph % (Auto) [place] # (Auto) Seg Neutrophils % Seg Neutrophils # PT Sodium Potassium Chloride Carbon Dioxide BUN Creatinine Glucose POC Glucose 166 H 139 H Calcium Magnesium Alkaline Phosphatase Total Protein Albumin Crossmatch 02/06/22 02/06/22 02/06/22 04:00 04:00 04:00 WBC RBC 2.02 L Hgb 7.0 L Hct 19.1 L* MCV MCH 35 H MCHC 37 H RDW 16.5 H Lymph % (Auto) [place] # (Auto) Seg Neutrophils % Seg Neutrophils # PT 15.5 H Sodium Potassium 3.5 L Chloride 109.6 H Carbon Dioxide 21 L BUN Creatinine Glucose 164 H POC Glucose Calcium 7.6 L Magnesium 1.60 L Alkaline Phosphatase Total Protein Albumin Crossmatch 02/06/22 02/06/22 02/06/22 07:55 09:19 11:57 WBC RBC Hgb Hct MCV MCH MCHC RDW Lymph % (Auto) [place] # (Auto) Seg Neutrophils % Seg Neutrophils # PT Sodium Potassium Chloride Carbon Dioxide BUN Creatinine Glucose POC Glucose 161 H 157 H 214 H Calcium Magnesium Alkaline Phosphatase Total Protein Albumin Crossmatch Chest x-ray: report reviewed, image reviewed Additional Studies: CHEST 1 VIEW 02/04/2022 8:38 AM INDICATION / CLINICAL INFORMATION: Dyspnea. COMPARISON: None available. FINDINGS: SUPPORT DEVICES: None. HEART / MEDIASTINUM: No significant abnormality. LUNGS / PLEURA: No significant pulmonary or pleural abnormality. No p neumothorax. ADDITIONAL FINDINGS: No significant additional findings. IMPRESSION: 1. No acute findings.
[2022-02-06] MEDS ORDERED: SODIUM CHLORIDE 0.9% 500 ML 500 ML IV NR (12:45)
--- NOTE | 2022-02-06 13:23 | Post Anesthesia Evaluation ---
- Post Anesthesia Evaluation Patient Participated: Yes Airway Patent: Yes Stable Respiratory Function: Yes Nausea/Vomiting: No Temp > 96.8F: Yes Pain Manageable: Yes Adequeate Hydration: Yes Anesthesia Complications: No
--- NOTE | 2022-02-06 14:21 | Progress Note ---
Assessment and Plan Assessment and plan: This is a 56-year-old male with known past medical history of type 2 diabetes mellitus and prostate CA admitted for acute blood loss anemia secondary to GI bleed Hospital Course to Date: 02/04: s/p 3units of PRBCs, H&H stable, no s/s of any active bleeding since admit. GI consulted, plan for possible EGD/colonoscopy tomorrow. Clear liquid diet today, NPO after midnight tonight. Continue protonix gtt and trend H&H Q8hrs. Remains hyperglycemic SSI adjusted and Lantus added Qhs. 02/05: H&H trending down, no s/s of any active bleeding reported, VSS. Plan for EGD/colonoscopy tomorrow per GI. Continue clear liquid diet and protonix gtt. Continue to trend H&H transfuse for Hgb less than 7. BG improved, continue SSI and qHs Lantus. Patient is stable for transfer to the floor 02/06: Patient seen and examined this morning post endoscopy no new complaints. Tolerating diet. I did discuss the findings as noted below he verbalized understanding he will follow-up with the GI doctor for pathology report. Hemoglobin is 7 today has had some gradual downward trend we will give 1 unit packed red blood cell with his agreeable to. He understands that he also was too large for endoscopic therapy but had no high risk stigmata so low risk for recurrent bleed per GI. I provided counseling on the need to ensure he has colonoscopy in 5 years he verbalized understanding his sister was present in the room. No new complaints at this time. Anticipate discharge in a.m. 50 minutes of preventive care counseling provided FINDINGS: * Normal second portion of the duodenum * Large ulcer in the duodenal bulb extending duodenal sweep. About 2 cm x 5 cm. Clean-based with no high risk stigmata. Heaped up edges. On the anterior wall. Cold forceps used to obtain multiple biopsies from the edges as well as base of the duodenal ulcer rule out dysplasia * Mild gastritis of the antrum and body of the stomach. Biopsies were taken to rule out H. Pylori infection. A total of 5 biopsies were taken, 2 from the antrum, 1 from the incisura, 2 from the body. * There was a 3 mm sessile polyp in the gastric antrum which was removed by cold forceps biopsy and placed and the same bottle as H. pylori biopsies * Z-line irregular 41 cm in incisors * Remainder of exam unremarkable RECOMMENDATIONS: Anemia is due to the duodenal ulcer. Follow-up pathology results Pantoprazole 40 mg twice daily Restarting patient on diet Once hemoglobin stable for 24 hours can discharge with outpatient follow-up. Transfuse for hemoglobin less than 7 Ulcer is too large for endoscopic therapy, and also had no high risk stigmata so is low risk for recurrent bleed. Therefore, GI will sign off Patient should have repeat colonoscopy in 5 years * Normal terminal ileum * Mild scattered diverticulosis throughout the colon * 5 mm sessile polyp in the sigmoid colon removed by cold snare polypectomy * Small nonbleeding internal hemorrhoids * Remainder of exam unremarkable RECOMMENDATIONS: Anemia is due to the duodenal ulcer. Follow-up pathology results Pantoprazole 40 mg twice daily Restarting patient on diet Once hemoglobin stable for 24 hours can discharge with outpatient follow-up. Transfuse for hemoglobin less than 7 Ulcer is too large for endoscopic therapy, and also had no high risk stigmata so is low risk for recurrent bleed. Therefore, GI will sign off Patient should have repeat colonoscopy in 5 years Assessment and Plan #Acute Blood Loss Anemia 2/2 secondary to duodenal ulcer. Sessile polyp in the sigmoid colon #GI Bleed: - Presented with generalized weakness and dizziness and Hgb of 5.6 - Stool occult blood positive - Per patient black stools noted at home but none reported since admit - S/p 3 units of PRBCs - H&H stable, however trending down - no s/s of any active bleeding - GI Consulted, appreciate recommendations - Plan for possible EGD/colonoscopy tomorrow. - Clear liquid diet today, NPO after midnight tonight - Continue Protonix gtt - Continue to trend H&H #Hypotension-resolved #H/o Hypertension - Most likely secondary to above - BP improved post blood products - Hold antihypertensive therapy for now, until after scoping - Continue blood pressure monitor per protocol - Maintain MAP above 65 and SBP less than 160 #Type 2 Diabetes Mellitus with Hyperglycemia - Hgb A1c- 5.8, patient was on Metformin at home - Continue BG check ACHS and Lantus Qhs - While critically ill target blood glucose of 140-180 #Hypokalemia - K repleted - Monitor and replace electrolytes as needed - Strict intake and output #H/o Prostate Cancer - Per patient was diagnosed with prostate CA over a year ago, however he had not been following up with his doctor - Per patient, he has an appointment with his Urologist, Dr. Garcia for this upcoming Wednesday 02/07 to further discuss plan of care - Follow up with Urology and PCP outpatient #GI/DVT Prophylaxis - PPI- Protonix gtt - SCDs to bilateral lower extremities while in bed #Advance Care Planning - Disease education data, care plan, diagnoses, and prognosis were discussed with patient at the bedside. Patient is a FULL code. Patient acknowledged understanding and agreed with current care plan. History Interval history: Patient seen and examined post endoscopy all questions answered to sister at bedside. Patient tolerating diet no new complaints. Hospitalist Physical - Physical exam Narrative exam: VITAL SIGNS: Reviewed. GENERAL: The patient appears normally developed, Vital signs as documented. HEAD: No signs of head trauma. EYES: Pupils are equal. Extraocular motions intact. EARS: Hearing grossly intact. MOUTH: Oropharynx is normal. NECK: No adenopathy, no JVD. CHEST: Chest with clear breath sounds bilaterally. No wheezes, rales, or rhonchi. CARDIAC: Regular rate and rhythm. S1 and S2, without murmurs, gallops, or rubs. VASCULAR: No Edema. Peripheral pulses normal and equal in all extremities. ABDOMEN: Soft, non tender and non distended. No rebound or guarding, and no masses palpated. Bowel Sounds normal. MUSCULOSKELETAL: Good range of motion of all major joints. Extremities without clubbing, cyanosis or edema. NEUROLOGIC EXAM: Alert and oriented x 3 No focal sensory or strength deficits. Speech normal. Follows commands. PSYCHIATRIC: Mood normal. SKIN: detail exam as documented in skin assessment - Constitutional Vitals: Temp Pulse Resp BP Pulse Ox 97.8 F 72 18 103/58 96 02/06/22 11:58 02/06/22 11:58 02/06/22 11:58 02/06/22 11:58 02/06/22 12:00 General appearance: Present: no acute distress, well-nourished, obese Results - Labs CBC & Chem 7: 02/06/22 04:00 02/06/22 04:00 Labs: Laboratory Last Values WBC 8.6 K/mm3 (4.5-11.0) 02/06/22 04:00 RBC 2.02 M/mm3 (3.65-5.03) L 02/06/22 04:00 Hgb 7.0 gm/dl (11.8-15.2) L 02/06/22 04:00 Hct 19.1 % (35.5-45.6) L* 02/06/22 04:00 MCV 94 fl (84-94) 02/06/22 04:00 MCH 35 pg (28-32) H 02/06/22 04:00 MCHC 37 % (32-34) H 02/06/22 04:00 RDW 16.5 % (13.2-15.2) H 02/06/22 04:00 Plt Count 245 K/mm3 (140-440) 02/06/22 04:00 Lymph % (Auto) 15.5 % (13.4-35.0) 02/05/22 04:28 [place] % (Auto) 6.9 % (0.0-7.3) 02/05/22 04:28 Eos % (Auto) 1.2 % (0.0-4.3) 02/05/22 04:28 Baso % (Auto) 0.5 % (0.0-1.8) 02/05/22 04:28 Lymph # (Auto) 1.8 K/mm3 (1.2-5.4) 02/05/22 04:28 [place] # (Auto) 0.8 K/mm3 (0.0-0.8) 02/05/22 04:28 Eos # (Auto) 0.1 K/mm3 (0.0-0.4) 02/05/22 04:28 Baso # (Auto) 0.1 K/mm3 (0.0-0.1) 02/05/22 04:28 Seg Neutrophils % 75.9 % (40.0-70.0) H 02/05/22 04:28 Seg Neutrophils # 8.6 K/mm3 (1.8-7.7) H 02/05/22 04:28 PT 15.5 Sec. (12.2-14.9) H 02/06/22 04:00 INR 1.08 (0.87-1.13) 02/06/22 04:00 Sodium 141 mmol/L (137-145) 02/06/22 04:00 Potassium 3.5 mmol/L (3.6-5.0) L 02/06/22 04:00 Chloride 109.6 mmol/L (98-107) H 02/06/22 04:00 Carbon Dioxide 21 mmol/L (22-30) L 02/06/22 04:00 Anion Gap 14 mmol/L 02/06/22 04:00 BUN 14 mg/dL (9-20) 02/06/22 04:00 Creatinine 1.1 mg/dL (0.8-1.3) 02/06/22 04:00 Estimated GFR > 60 ml/min 02/06/22 04:00 BUN/Creatinine Ratio 13 % 02/06/22 04:00 Glucose 164 mg/dL (75-100) H 02/06/22 04:00 POC Glucose 214 mg/dL (70-105) H 02/06/22 11:57 Hemoglobin A1c 5.8 % (4-6) 02/04/22 05:24 Calcium 7.6 mg/dL (8.4-10.2) L 02/06/22 04:00 Phosphorus 2.60 mg/dL (2.5-4.5) 02/06/22 04:00 Magnesium 1.60 mg/dL (1.7-2.3) L 02/06/22 04:00 Total Bilirubin 0.40 mg/dL (0.1-1.2) 02/05/22 04:28 AST 11 units/L (5-40) 02/05/22 04:28 ALT 8 units/L (7-56) 02/05/22 04:28 Alkaline Phosphatase 31 units/L (35-129) L 02/05/22 04:28 Total Protein 4.6 g/dL (6.3-8.2) L 02/05/22 04:28 Albumin 2.8 g/dL (3.9-5) L 02/05/22 04:28 Albumin/Globulin Ratio 1.6 % 02/05/22 04:28 Urine Color Yellow (Yellow) 02/04/22 17:47 Urine Turbidity Clear (Clear) 02/04/22 17:47 Urine pH 6.5 (5.0-7.0) 02/04/22 17:47 Ur Specific [place] 1.005 (1.003-1.030) 02/04/22 17:47 Urine Protein <15 mg/dl mg/dL (Negative) 02/04/22 17:47 Urine Glucose (UA) 2000 mg/dL (Negative) 02/04/22 17:47 Urine Ketones Negative mg/dL (Negative) 02/04/22 17:47 Urine Blood Negative (Negative) 02/04/22 17:47 Urine Nitrite Negative (Negative) 02/04/22 17:47 Urine Bilirubin Negative (Negative) 02/04/22 17:47 Urine Urobilinogen < 2.0 mg/dL (<2.0) 02/04/22 17:47 Ur Leukocyte Esterase Negative (Negative) 02/04/22 17:47 Urine WBC (Auto) 1.0 /HPF (0.0-6.0) 02/04/22 17:47 Urine RBC (Auto) < 1.0 /HPF (0.0-6.0) 02/04/22 17:47 Urine Mucus Few /HPF 02/04/22 17:47 Blood Type O POSITIVE 02/03/22 21:53 Antibody Screen Negative 02/03/22 21:53 Crossmatch See Detail 02/03/22 21:53 [place]/IV: Voiding Method Toilet Active Medications - Current Medications Current Medications: Generic Name Dose Route Start Last Admin Trade Name Freq PRN Reason Stop Dose Admin Acetaminophen 650 mg 02/03/22 23:45 02/05/22 20:45 Acetaminophen 325 Mg Tab PO 650 mg Q6H PRN Administration Pain MILD(1-3)/Fever >100.5/LUIS Dextrose 50 ml 02/03/22 23:45 Dextrose 50% In Water (25gm) 50 Ml Syringe IV Q30MIN PRN Hypoglycemia Protocol Sodium Chloride 1,000 mls @ 75 mls/hr 02/03/22 23:45 02/05/22 21:43 Nacl 0.9% 1000 Ml IV 75 mls/hr DIRECT SHARI Administration Sodium Chloride 500 mls @ 0 mls/hr 02/06/22 12:45 Nacl 0.9% 500 Ml IV 02/07/22 12:44 ONCE NR As Directed Insulin Glargine 20 units 02/04/22 22:00 02/05/22 21:37 Insulin Glargine 100 Units/Ml SUB-Q Not Given QHS SHARI Insulin Human Lispro 0 unit 02/04/22 07:30 02/06/22 12:04 Insulin Lispro 100 Unit/Ml SUB-Q 4 unit ACHS SHARI Administration Protocol Morphine Sulfate 2 mg 02/03/22 23:45 Morphine 2 Mg/1 Ml Inj IV Q4H PRN Pain, Moderate (4-6) Ondansetron HCl 4 mg 02/03/22 23:45 Ondansetron 4 Mg/2 Ml Inj IV Q8H PRN Nausea And Vomiting Pantoprazole Sodium 40 mg 02/06/22 10:00 02/06/22 11:35 Pantoprazole 40 Mg Tab PO 40 mg BID SHARI Administration Polyethylene Glycol/Electrolytes 4,000 ml 02/05/22 15:00 02/05/22 15:15 Polyethylene Glycol/Elect Soln 4000 Ml PO 02/06/22 14:59 4,000 ml ONCE@1500 SHARI Administration Sodium Chloride 10 ml 02/04/22 10:00 02/06/22 11:14 Sodium Chloride 0.9% 10 Ml Flush Syringe IV 10 ml BID SHARI Administration Sodium Chloride 10 ml 02/03/22 23:45 Sodium Chloride 0.9% 10 Ml Flush Syringe IV PRN PRN LINE FLUSH
--- NOTE | 2022-02-06 18:06 | Electrocardiograph Report ---
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
[2022-02-06 22:42] VITALS: BP 113/62
[2022-02-06] MEDS: INSULIN GLARGINE 100 UNITS/ML SUB-Q SCH (22:46)
[2022-02-07 06:20] LABS: Hematocrit 22.8 % (35.5-45.6); Hemoglobin 8.1 gm/dl (11.8-15.2); Mean Corpuscular HGB Conc 36 % (32-34); Mean Corpuscular Volume 93 fl (84-94); Platelet Count 251 K/mm3 (140-440); Red Blood Count 2.44 M/mm3 (3.65-5.03); Red Cell Distribution Width 17.2 % (13.2-15.2)
[2022-02-07 06:42] LABS: BUN/Creatinine Ratio 11; Blood Urea Nitrogen 12 mg/dL (9-20); Calcium 7.9 mg/dL (8.4-10.2); Hemolysis Index 50
--- NOTE | 2022-02-07 08:07 | Discharge Summary ---
Providers - Providers Date of Admission: 02/03/22 23:46 Attending physician: NICOLE MIRANDA MD 02/03/22 23:46 Consult to Physician [CONS] Routine Comment: dr. laisha victor Consulting Provider: MARCOS VIEIRA Physician Instructions: Reason For Exam: GI Bleed, Anemia 02/04/22 00:04 Consult to Physician [CONS] Routine Comment: Consulting Provider: BENJI WEST Physician Instructions: Reason For Exam: GI bleed, Anemia Primary care physician: [employer] Hospitalization Reason for admission: anemia Condition: Stable Hospital course: This is a 56-year-old male with known past medical history of type 2 diabetes mellitus and prostate CA admitted for acute blood loss anemia secondary to GI bleed Hospital Course to Date: 02/04: s/p 3units of PRBCs, H&H stable, no s/s of any active bleeding since admit. GI consulted, plan for possible EGD/colonoscopy tomorrow. Clear liquid diet today, NPO after midnight tonight. Continue protonix gtt and trend H&H Q8hrs. Remains hyperglycemic SSI adjusted and Lantus added Qhs. 02/05: H&H trending down, no s/s of any active bleeding reported, VSS. Plan for EGD/colonoscopy tomorrow per GI. Continue clear liquid diet and protonix gtt. Continue to trend H&H transfuse for Hgb less than 7. BG improved, continue SSI and qHs Lantus. Patient is stable for transfer to the floor 02/06: Patient seen and examined this morning post endoscopy no new complaints. Tolerating diet. I did discuss the findings as noted below he verbalized understanding he will follow-up with the GI doctor for pathology report. Hemoglobin is 7 today has had some gradual downward trend we will give 1 unit packed red blood cell with his agreeable to. He understands that he also was too large for endoscopic therapy but had no high risk stigmata so low risk for recurrent bleed per GI. I provided counseling on the need to ensure he has colonoscopy in 5 years he verbalized understanding his sister was present in the room. No new complaints at this time. Anticipate discharge in a.m. 50 minutes of preventive care counseling provided FINDINGS: * Normal second portion of the duodenum * Large ulcer in the duodenal bulb extending duodenal sweep. About 2 cm x 5 cm. Clean-based with no high risk stigmata. Heaped up edges. On the anterior wall. Cold forceps used to obtain multiple biopsies from the edges as well as base of the duodenal ulcer rule out dysplasia * Mild gastritis of the antrum and body of the stomach. Biopsies were taken to rule out H. Pylori infection. A total of 5 biopsies were taken, 2 from the antrum, 1 from the incisura, 2 from the body. * There was a 3 mm sessile polyp in the gastric antrum which was removed by cold forceps biopsy and placed and the same bottle as H. pylori biopsies * Z-line irregular 41 cm in incisors * Remainder of exam unremarkable RECOMMENDATIONS: Anemia is due to the duodenal ulcer. Follow-up pathology results Pantoprazole 40 mg twice daily Restarting patient on diet Once hemoglobin stable for 24 hours can discharge with outpatient follow-up. Transfuse for hemoglobin less than 7 Ulcer is too large for endoscopic therapy, and also had no high risk stigmata so is low risk for recurrent bleed. Therefore, GI will sign off Patient should have repeat colonoscopy in 5 years * Normal terminal ileum * Mild scattered diverticulosis throughout the colon * 5 mm sessile polyp in the sigmoid colon removed by cold snare polypectomy * Small nonbleeding internal hemorrhoids * Remainder of exam unremarkable RECOMMENDATIONS: Anemia is due to the duodenal ulcer. Follow-up pathology results Pantoprazole 40 mg twice daily Restarting patient on diet Once hemoglobin stable for 24 hours can discharge with outpatient follow-up. Transfuse for hemoglobin less than 7 Ulcer is too large for endoscopic therapy, and also had no high risk stigmata so is low risk for recurrent bleed. Patient should have repeat colonoscopy in 5 years 02/07: Patient seen and examined, extensively counselling provided on preventive care and diabetes management along with findings on endoscope. He denies any further bleeding. He will follow with GI. Assessment and Plan #Acute Blood Loss Anemia 2/2 secondary to duodenal ulcer. Sessile polyp in the sigmoid colon #GI Bleed: - Presented with generalized weakness and dizziness and Hgb of 5.6 - Stool occult blood positive - Per patient black stools noted at home but none reported since admit - S/p 3 units of PRBCs - H&H stable, however trending down - no s/s of any active bleeding - GI Consulted, appreciate recommendations - Plan for possible EGD/colonoscopy tomorrow. - Clear liquid diet today, NPO after midnight tonight - Continue Protonix gtt - Continue to trend H&H #Hypotension-resolved #H/o Hypertension - Most likely secondary to above - BP improved post blood products - Hold antihypertensive therapy for now, until after scoping - Continue blood pressure monitor per protocol - Maintain MAP above 65 and SBP less than 160 #Type 2 Diabetes Mellitus with Hyperglycemia - Hgb A1c- 5.8, patient was on Metformin at home - Continue BG check ACHS and Lantus Qhs - While critically ill target blood glucose of 140-180 #Hypokalemia - K repleted - Monitor and replace electrolytes as needed - Strict intake and output #Prostate Cancer - Per patient was diagnosed with prostate CA over a year ago, however he had not been following up with his doctor - Per patient, he has an appointment with his Urologist, Dr. Garcia for this upcoming Wednesday 02/07 to further discuss plan of care - Follow up with Urology and PCP outpatient Disposition: HOME / SELF CARE / HOMELESS Final Discharge Diagnosis (Prints w/discharge instructions): #Acute Blood Loss Anemia 2/2 secondary to duodenal ulcer. Sessile polyp in the sigmoid colon. #GI Bleed: #Hypotension-resolved. #H/o Hypertension. # Prostate Cancer Time spent for discharge: 35 mins Core Measure Documentation - Palliative Care Palliative Care/ Comfort Measures: Not Applicable - Core Measures Any of the following diagnoses?: none Exam - Physical Exam Narrative exam: VITAL SIGNS: Reviewed. GENERAL: The patient appears normally developed, Vital signs as documented. HEAD: No signs of head trauma. EYES: Pupils are equal. Extraocular motions intact. EARS: Hearing grossly intact. MOUTH: Oropharynx is normal. NECK: No adenopathy, no JVD. CHEST: Chest with clear breath sounds bilaterally. No wheezes, rales, or rhonchi. CARDIAC: Regular rate and rhythm. S1 and S2, without murmurs, gallops, or rubs. VASCULAR: No Edema. Peripheral pulses normal and equal in all extremities. ABDOMEN: Soft, non tender and non distended. No rebound or guarding, and no masses palpated. Bowel Sounds normal. MUSCULOSKELETAL: Good range of motion of all major joints. Extremities without clubbing, cyanosis or edema. NEUROLOGIC EXAM: Alert and oriented x 3 No focal sensory or strength deficits. Speech normal. Follows commands. PSYCHIATRIC: Mood normal. SKIN: detail exam as documented in skin assessment - Constitutional Vitals: Temp Pulse Resp BP Pulse Ox 99.6 F 82 16 113/62 97 02/06/22 22:02 02/06/22 22:02 02/06/22 22:02 02/06/22 22:02 02/06/22 22:02 Plan Activity: advance as tolerated, fall precautions Diet: diabetic Special Instructions: record daily weights, record daily BP diary, record blood sugar diary (PREVENTIVE CARE COUNSELLING 15 MINS) Care Plan Goals: MUST PAY CLOSE ATTENTION TO YOUR BLOOD SUGAR. YOUR A1C INDICATES GOOD CONTROL BUT YOUR BLOOD GLUCOSE WAS SIGNIFICANTLY HIGH Plan of Treatment: Repeat colonosocpy in 5 years Follow up with: PRIMARY CAREMD [Primary Care Provider] - 3-5 Days ALBERT RECINOS MD [Staff Physician] - 7 Days Prescriptions: Insulin NPH Human Isophane [Novolin N] 0 unit SQ ACHS #1 vial Pantoprazole [Protonix TAB] 40 mg PO BID #60 tablet Other Discharge Orders: Glucometer (Amb) Location: None Selected Glucometer supplies[Amb] Location: None Selected
[2022-02-07] MEDS: INSULIN LISPRO 100 UNIT/ML SUB-Q SCH (08:17)
[2022-02-07] MEDS ORDERED: POTASSIUM CHLORIDE ER 20 MEQ TAB PO NR (08:30)
--- NOTE | 2022-02-07 08:45 | Progress Note ---
Assessment and Plan 56-year-old male with known history of diabetes mellitus and prostate cancer diagnosed about a year ago presenting to the emergency room complaining of generalized weakness and dizziness. Patient has refused to follow-up with us for prostate cancer since last year. He also indicates that his blood sugar has been high. He denies any fever or chills, no chest pain or shortness of breath, no headache or diaphoresis. Denies any abdominal pain, no hematuria or dysuria. He also indicates that he has been having some bloody stool. He denies any use of nonsteroidal anti-inflammatory medication. Work-up in the emergency room today reveals an elevated blood glucose in the 500s. Hemoglobin of 5.6. CT angiogram of the abdomen and pelvis was unremarkable. Patient receved blood transfusion 4 units PRBC [employer] Consultant on-call consulted. Patient has no history of smoking, alcohol or drug abuse. 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 No known drug allergies. Patient awake, weak. Resting on room air. O2 saturation 98%. No acute respiratory distress at rest. Patient running low grade temp at times. No Leukocytosis. Blood pressure 113/62 , Pulse 82 , Respirations 16. Patients to days 02/07/22 HGB 8.1, Hematocrit 22.8 Patients to days K+ 3.5. Patient received K+ supplementation. Chest xray done 02/06/22 reported no acute findings. Patient is on I/V fluids and protonix.S/C Insulin. - Patient Problems (1) Anemia due to gastrointestinal blood loss Status: Acute Plan to address problem: Patient received blood transfusion 4 units PRBC. Patients to days 02/07/22 HGB 8.1. Gastroenterology on consult. (2) Hyperglycemia due to type 2 diabetes mellitus Status: Acute Plan to address problem: Management as per primary care. (3) Prostate cancer Status: Acute Plan to address problem: Patient has history of prostate cancer. Patient non compliant. Patient did not follow on prostate cancer. Recommend to consult urology and Oncology. Subjective Date of service: 02/07/22 Principal diagnosis: Anemia due to GI bleed Interval history: 56-year-old male with known history of diabetes mellitus and prostate cancer diagnosed about a year ago presenting to the emergency room complaining of generalized weakness and dizziness. Patient has refused to follow-up with us for prostate cancer since last year. He also indicates that his blood sugar has been high. He denies any fever or chills, no chest pain or shortness of breath, no headache or diaphoresis. Denies any abdominal pain, no hematuria or dysuria. He also indicates that he has been having some bloody stool. He denies any use of nonsteroidal anti-inflammatory medication. Work-up in the emergency room today reveals an elevated blood glucose in the 500s. Hemoglobin of 5.6. CT angiogram of the abdomen and pelvis was unremarkable. Patient receved blood transfusion 4 units PRBC [employer] Consultant on-call consulted. Patient has no history of smoking, alcohol or drug abuse. 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 No known drug allergies. Patient awake, weak. Resting on room air. O2 saturation 98%. No acute respiratory distress at rest. Patient running low grade temp at times. No Leukocytosis. Blood pressure 113/62 , Pulse 82 , Respirations 16. Patients to days 02/07/22 HGB 8.1, Hematocrit 22.8 Patients to days K+ 3.5. Patient received K+ supplementation. Chest xray done 02/06/22 reported no acute findings. Patient is on I/V fluids and protonix.S/C Insulin. Objective Vital Signs - 12hr 02/06/22 02/06/22 02/07/22 22:00 22:02 08:21 Temperature 99.6 F Pulse Rate 82 Respiratory 20 16 Rate Blood Pressure 113/62 O2 Sat by Pulse 98 97 98 Oximetry Constitutional: no acute distress, alert, other (weak) Eyes: non-icteric ENT: oropharynx moist Neck: supple, no lymphadenopathy Effort: normal Ascultation: Bilateral: diminished breath sounds Cardiovascular: regular rate and rhythm Gastrointestinal: normoactive bowel sounds, soft, non-tender Integumentary: normal Extremities: no cyanosis, no edema Neurologic: normal mental status, non-focal exam, pupils equal and round Psychiatric: depressed CBC and BMP: 02/07/22 06:07 02/07/22 06:07 ABG, PT/INR, D-dimer: PT/INR, D-dimer PT 15.5 Sec. (12.2-14.9) H 02/06/22 04:00 INR 1.08 (0.87-1.13) 02/06/22 04:00 Abnormal lab findings: Abnormal Labs 02/03/22 02/03/22 02/03/22 20:19 20:24 20:44 WBC 16.2 H RBC 1.66 L Hgb 5.8 L* Hct 16.6 L* MCV 100 H MCH 35 H MCHC 35 H RDW 12.4 L Lymph % (Auto) 11.6 L [place] # (Auto) 1.1 H Seg Neutrophils % 81.4 H Seg Neutrophils # 13.2 H PT Sodium 132 L Potassium Chloride 93.9 L Carbon Dioxide BUN 56 H Creatinine 1.6 H Glucose 551 H* POC Glucose 505 H Calcium Magnesium Alkaline Phosphatase Total Protein Albumin Crossmatch 02/03/22 02/03/22 02/04/22 21:53 22:45 04:00 WBC RBC Hgb Hct MCV MCH MCHC RDW Lymph % (Auto) [place] # (Auto) Seg Neutrophils % Seg Neutrophils # PT Sodium 133 L Potassium Chloride Carbon Dioxide BUN 47 H Creatinine Glucose 415 H POC Glucose 368 H Calcium 8.0 L Magnesium Alkaline Phosphatase Total Protein Albumin Crossmatch See Detail 02/04/22 02/04/22 02/04/22 05:24 06:37 11:39 WBC 16.6 H RBC 2.52 L Hgb 8.3 L Hct 23.5 L D MCV MCH 33 H MCHC 35 H RDW Lymph % (Auto) [place] # (Auto) Seg Neutrophils % Seg Neutrophils # PT Sodium Potassium Chloride Carbon Dioxide BUN Creatinine Glucose POC Glucose 373 H 338 H Calcium Magnesium Alkaline Phosphatase Total Protein Albumin Crossmatch 02/04/22 02/04/22 02/04/22 14:00 16:32 23:18 WBC RBC Hgb 8.5 L 8.1 L Hct 25.4 L 23.3 L MCV MCH MCHC RDW Lymph % (Auto) [place] # (Auto) Seg Neutrophils % Seg Neutrophils # PT Sodium Potassium Chloride Carbon Dioxide BUN Creatinine Glucose POC Glucose 189 H Calcium Magnesium Alkaline Phosphatase Total Protein Albumin Crossmatch 02/04/22 02/05/22 02/05/22 23:50 04:28 04:28 WBC 11.3 H RBC 2.27 L Hgb 7.4 L Hct 21.3 L MCV MCH 33 H MCHC 35 H RDW 15.5 H Lymph % (Auto) [place] # (Auto) Seg Neutrophils % 75.9 H Seg Neutrophils # 8.6 H PT Sodium Potassium 3.2 L Chloride Carbon Dioxide BUN 23 H Creatinine Glucose 171 H POC Glucose 274 H Calcium 7.4 L Magnesium Alkaline Phosphatase 31 L Total Protein 4.6 L Albumin 2.8 L Crossmatch 02/05/22 02/05/22 02/05/22 08:15 11:14 12:22 WBC RBC Hgb 7.6 L Hct 22.6 L MCV MCH MCHC RDW Lymph % (Auto) [place] # (Auto) Seg Neutrophils % Seg Neutrophils # PT Sodium Potassium Chloride Carbon Dioxide BUN Creatinine Glucose POC Glucose 187 H 154 H Calcium Magnesium Alkaline Phosphatase Total Protein Albumin Crossmatch 02/05/22 02/05/22 02/05/22 16:49 21:12 23:05 WBC RBC Hgb 7.3 L Hct 21.1 L MCV MCH MCHC RDW Lymph % (Auto) [place] # (Auto) Seg Neutrophils % Seg Neutrophils # PT Sodium Potassium Chloride Carbon Dioxide BUN Creatinine Glucose POC Glucose 166 H 139 H Calcium Magnesium Alkaline Phosphatase Total Protein Albumin Crossmatch 02/06/22 02/06/22 02/06/22 04:00 04:00 04:00 WBC RBC 2.02 L Hgb 7.0 L Hct 19.1 L* MCV MCH 35 H MCHC 37 H RDW 16.5 H Lymph % (Auto) [place] # (Auto) Seg Neutrophils % Seg Neutrophils # PT 15.5 H Sodium Potassium 3.5 L Chloride 109.6 H Carbon Dioxide 21 L BUN Creatinine Glucose 164 H POC Glucose Calcium 7.6 L Magnesium 1.60 L Alkaline Phosphatase Total Protein Albumin Crossmatch 02/06/22 02/06/22 02/06/22 07:55 09:19 11:57 WBC RBC Hgb Hct MCV MCH MCHC RDW Lymph % (Auto) [place] # (Auto) Seg Neutrophils % Seg Neutrophils # PT Sodium Potassium Chloride Carbon Dioxide BUN Creatinine Glucose POC Glucose 161 H 157 H 214 H Calcium Magnesium Alkaline Phosphatase Total Protein Albumin Crossmatch 02/06/22 02/06/22 02/07/22 16:14 22:03 06:07 WBC RBC 2.44 L Hgb 8.1 L Hct 22.8 L MCV MCH 33 H MCHC 36 H RDW 17.2 H Lymph % (Auto) [place] # (Auto) Seg Neutrophils % Seg Neutrophils # PT Sodium Potassium Chloride Carbon Dioxide BUN Creatinine Glucose POC Glucose 181 H 166 H Calcium Magnesium Alkaline Phosphatase Total Protein Albumin Crossmatch 02/07/22 06:07 WBC RBC Hgb Hct MCV MCH MCHC RDW Lymph % (Auto) [place] # (Auto) Seg Neutrophils % Seg Neutrophils # PT Sodium 134 L Potassium 3.5 L Chloride Carbon Dioxide 20 L BUN Creatinine Glucose 164 H POC Glucose Calcium 7.9 L Magnesium Alkaline Phosphatase Total Protein Albumin Crossmatch Allied health notes reviewed: nursing
[2022-02-07] MEDS: PANTOPRAZOLE 40 MG TAB PO SCH (09:02)
== END 2022-02-07 12:15 | disposition home or self-care (01) | DRG 378 ==
LOC: ED 19:45 → CC1 23:46 → 3A 02-05 15:50
PROVIDERS: ADMIT Internal Medicine Geriatric Medicine; ATTEND Internal Medicine
PROC: 30233N1 Transfusion of Nonautologous Red Blood Cells into Peripheral Vein, Percutaneous Approach (ICD-10-PCS; principal; 2022-02-04)
PROC: 0DBN8ZZ Excision of Sigmoid Colon, Via Natural or Artificial Opening Endoscopic (ICD-10-PCS; 2022-02-06)
PROC: 0DB98ZX Excision of Duodenum, Via Natural or Artificial Opening Endoscopic, Diagnostic (ICD-10-PCS; 2022-02-06)
PROC: 0DB68ZX Excision of Stomach, Via Natural or Artificial Opening Endoscopic, Diagnostic (ICD-10-PCS; 2022-02-06)
PROC: 0DB68ZZ Excision of Stomach, Via Natural or Artificial Opening Endoscopic (ICD-10-PCS; 2022-02-06)
DX: K26.4 Chronic or unspecified duodenal ulcer with hemorrhage (principal); D62 Acute posthemorrhagic anemia; E11.65 Type 2 diabetes mellitus with hyperglycemia; I95.9 Hypotension, unspecified; Z85.46 Personal history of malignant neoplasm of prostate; K64.8 Other hemorrhoids; K57.30 Diverticulosis of large intestine without perforation or abscess without bleeding; E87.6 Hypokalemia; K63.5 Polyp of colon
CPT/HCPCS: 36415; 71045; 74174; 80048; 80053; 81001; 82270; 82962; 83036; 83735; 84100; 85014; 85018; 85025; 85027; 85610; 86850; 86900; 86901; 86920; 88305; 88342; 93005; G0378; Q9967; C9113; J1815; J2704; J7030; J7040; P9016